=== PATIENT | female | born 1940 | race African-American/Black ===

== ENCOUNTER 2017-04-21 17:31 | Inpatient (IN) | payer OTHER ==
--- NOTE | 2017-04-21 18:43 | PDOC ---
History of Present Illness - General History Source: Patient, Family (son) Exam Limitations: No Limitations - History of Present Illness Initial Comments: 04/21/17 18:48 The patient is a 76 year old female with a significant past medical history of CVA (earlier this year), acute [place] s/p stent x 1 (2 months ago), HTN, HLD, CHF, A -fib (on coumadin), CVA, NSTEMI, CAD, GERD, and chronic lower extremity edema who presents to the ED, accompanied by son, with complaints of recent weight gain and SOB for one week. As per son, the [facility] after her acute MN. Son states, the patient has an increased weight gain and worsening bilateral lower extremity edema. Son also states the patient is short of breath that is worsened on exertion. Denies fever or chills. Denies chest pain or palpitations. Denies abdominal pain , nausea, vomiting, or diarrhea. Denies any other symptoms. PCP: Petra Zapata PMD ([phone]) Cardio: Manan Herr PMD ([phone]) <Cordelia Hui - Last Filed: 04/21/17 18:48> <Rhiannon Moore - Last Filed: 04/21/17 21:08> - General Chief Complaint: Edema Stated Complaint: SOB/FOOT SWOLLEN Time Seen by Provider: 04/21/17 17:59 Past History <Cordelia Hui - Last Filed: 04/21/17 18:48> - Past Medical History CVA: Yes (right sided weakness uses walker) HTN: Yes - Suicide/Smoking/Psychosocial Hx Smoking History: Never smoked Have you smoked in the past 12 months: No Information on smoking cessation initiated: No Hx Alcohol Use: No Drug/Substance Use Hx: No Substance Use Type: None <Rhiannon Moore - Last Filed: 04/21/17 21:08> - Past Medical History Allergies/Adverse Reactions: Allergies Allergy/AdvReac Type Severity Reaction Status Date / Time No Known Allergies Allergy Verified 04/21/17 17:43 Home Medications: Ambulatory Orders Atorvastatin Ca [Lipitor] 80 mg PO HS 04/21/17 Clopidogrel Bisulfate [Clopidogrel] 75 mg PO 04/21/17 Famotidine [Pepcid -] 40 mg PO DAILY 04/21/17 Furosemide [Lasix -] 40 mg PO BID 04/21/17 Lisinopril [Prinivil] 20 mg PO DAILY 04/21/17 Metoprolol Succinate [Toprol Xl -] 50 mg PO DAILY 04/21/17 Potassium Chloride 10 meq PO 04/21/17 Warfarin Sodium [Coumadin] 2.5 mg PO 04/21/17 Review of Systems - Review of Systems Able to Perform ROS?: Yes Comments:: 04/21/17 18:48 CONSTITUTIONAL: No reported: Fever, Chills, Diaphoresis, Generalized Weakness, Malaise, Loss of Appetite HEENT: No reported: Rhinorrhea, Nasal Congestion, Throat Pain, Throat Swelling, Difficulty Swallowing, Mouth Swelling, Ear Pain, Eye Pain, Visual Changes CARDIOVASCULAR: No reported: Chest Pain, Syncope, Palpitations, Irregular Heart Rate, Lightheadedness, Peripheral Edema RESPIRATORY: + SOB with exertion No reported: Cough, Orthopnea, Wheezing, Stridor, Hemoptysis GASTROINTESTINAL: No reported: Abdominal pain, Abdominal Distension, Nausea, Vomiting, Diarrhea, Constipation, Melena, Hematochezia GENITOURINARY: No reported: Dysuria, Frequency, Urgency, Hesitancy, Flank Pain, Genital Pain MUSCULOSKELETAL:+ leg edema No reported: Myalgia, Arthralgia, Joint Swelling, Back pain, Neck Pain SKIN: No reported: Rash, Itching, Pallor HEMEATOLOGIC/IMMUNOLOGIC: No reported: Easy Bleeding, Easy Bruising, Lymphadenopathy, Frequent infections ENDOCRINE:+ weight gain No reported: Unexplained Weight Loss, Heat Intolerance, Cold Intolerance NEUROLOGIC: No reported: Headache, Focal Weakness, Paresthesias, Vertigo, Lightheadedness, Unsteady Gait, Seizure, Mental Status Changes, Incontinence PSYCHIATRIC: No reported: Anxiety, Depression All Other Systems: Reviewed and Negative <Cordelia Hui - Last Filed: 04/21/17 18:48> *Physical Exam - Vital Signs Last Vital Signs Temp Pulse Resp BP Pulse Ox 96 F L 79 18 139/68 96 04/21/17 17:39 04/21/17 17:39 04/21/17 17:39 04/21/17 17:39 04/21/17 17:39 - Physical Exam Comments: 04/21/17 18:48 GENERAL: Well developed, well nourished. Awake and alert. No acute distress. HEENT: Normocephalic, atraumatic. PERRLA, EOMI. No conjunctival pallor. Sclera are non- icteric. Moist mucous membranes. Oropharynx is clear. NECK: Supple. Full ROM. No JVD. Carotid pulses 2+ and symmetric, without bruits. No thyromegaly. No lymphadenopathy. CARDIOVASCULAR: Regular rate and rhythm. No murmurs, rubs, or gallops. Distal pulses are 2+ and symmetric. PULMONARY: No evidence of respiratory distress. Lungs clear to auscultation bilaterally. No wheezing, rales or rhonchi. ABDOMINAL: Soft. Non-tender. Non-distended. No rebound or guarding. No organomegaly. Normoactive bowel sounds. MUSCULOSKELETAL Normal range of motion at all joints. No bony deformities or tenderness. No CVA tenderness. EXTREMITIES: + Bilateral pedal edema. No cyanosis. No clubbing. No calf tenderness. SKIN: Warm and dry. Normal capillary refill. No rashes. No jaundice. NEUROLOGICAL: Alert, awake, appropriate. Cranial nerves 2-12 intact. No deficits to light touch and temperature in face, upper extremities and lower extremities. No motor deficits in the in face, upper extremities and lower extremities. Normoreflexic in the upper and lower extremities. Normal speech. Toes are down- going bilaterally. Gait is normal without ataxia. PSYCHIATRIC: Cooperative. Good eye contact. Appropriate mood and affect. <Cordelia Hui - Last Filed: 04/21/17 18:48> - Vital Signs Last Vital Signs Temp Pulse Resp BP Pulse Ox 96 F L 79 18 139/68 96 04/21/17 17:39 04/21/17 17:39 04/21/17 17:39 04/21/17 17:39 04/21/17 17:39 <Rhiannon Moore - Last Filed: 04/21/17 21:08> Heart Score/ECG Review - History History: Slightly suspicious - Electrocardiogram EKG: Non specific repolarization disturbance - Age Age: >/= 65 - Risk Factors Risk Factors Heart Score: Yes Hx Hypercholesterolemia, Yes Hx Hypertension Based on the list above the patient has:: 1-2 risk factors - Troponin Troponin: </= normal limit - Score Heart Score - Total: 4 - ECG Intrepretation Rhythm: Regular Rhythm <Rhiannon Moore - Last Filed: 04/21/17 21:08> ED Treatment Course - LABORATORY CBC & Chemistry Diagram: 04/21/17 19:00 04/21/17 19:00 <Rhiannon Moore - Last Filed: 04/21/17 21:08> *DC/Admit/Observation/Transfer - Attestations Scribe Attestion: 04/21/17 18:49 Documentation prepared by Cordelia Hui, acting as medical receptionist biller for Rhiannon Moore MD <Cordelia Hui - Last Filed: 04/21/17 18:48> - Discharge Dispostion Admit: Yes <Rhiannon Moore - Last Filed: 04/21/17 21:08> Diagnosis at time of Disposition: Exertional dyspnea, Chronic a-fib, Elevated INR CAD (coronary artery disease) Qualifiers: Coronary Disease-Associated Artery/Lesion type: [place] artery [place] vs. transplanted heart: [place] heart Associated angina: without angina Qualified Code(s): I25.10 - Atherosclerotic heart disease of [place] coronary artery without angina pectoris - Referrals Referrals: Petra Esparza [Primary Care Provider] -
[2017-04-21 19:09] LABS: BASOPHIL 0.9 % (0-2.0); EOSINOPHIL 0.4 % (0-4.5); MCHC 31.7 g/dl (32.0-36.0); MEAN CELL VOLUME 66.1 fl (80-96); MEAN PLT VOLUME 10.2 fl (7.5-11.1); NEUTROPHILS 55.4 % (42.8-82.8); PLATELET COUNT 241 K/MM3 (134-434); WHITE BLOOD COUNT 4.4 K/mm3 (4.0-10.0)
[2017-04-21 19:39] LABS: TROPONIN I 0.03 ng/ml (0.00-0.05)
[2017-04-21 19:52] LABS: INR 3.64 (0.82-1.09); PROTHROMBIN TIME (PATIENT) 41.1 SEC (9.98-11.88)
[2017-04-21 19:54] LABS: ALBUMIN 3.5 g/dl (3.4-5.0); ANION GAP 13 (8-16); BILIRUBIN,TOTAL 1.6 mg/dL (0.2-1.0); CALCIUM 9.3 mg/dL (8.5-10.1); CO2 23 mmol/L (21-32); CREATININE 1.3 mg/dL (0.55-1.02); GLUCOSE,RANDOM 100 mg/dL (74-106); SGPT/ALT 48 U/L (12-78); TOT PROT 7.2 g/dl (6.4-8.2)
[2017-04-21 19:55] LABS: ALK PHOS 127 U/L (45-117)
[2017-04-21 19:57] LABS: SGOT/AST 54 U/L (15-37)
[2017-04-21 20:11] LABS: ANISOCYTOSIS 2+; HYPOCHROMIA 2+; MACROCYTOSIS 1+; MICROCYTOSIS 1+; PLATELET ESTIMATE ADEQUATE (NORMAL)
[2017-04-21] MEDS ORDERED: FUROSEMIDE 40 MG/4 ML INJECTABLE VIAL IVPUSH ONE (20:24)
--- NOTE | 2017-04-21 21:01 | HP ---
CHIEF COMPLAINT: SOB, Swelling to Legs PCP: Dr. Petra Esparza [phone] Geek Squad Agent: Dr. Rahul Herr [phone] HISTORY OF PRESENT ILLNESS: This is a 76 y/o woman with a significant past medical history o Hypertension, Hyperlipidemia, CHF, CVA (R sided deficit, 2017), [place] s/p Stent x1 (2 months ago) , Afib (on Coumadin), GERD, Chronic Lower Extremity Edema. Who presents to the ED with her family for dyspnea on exertion, increased B/L lower extremity swelling x 3-4 days. Patient's son reports that the patient has had increased weight gain as well. Patient was recently discharged from the assisted. Patient denies fever, chills, CP, palpitations ER course was notable for: (1) BNP > 22095 (2) Chest Xray- image Cardiomegaly, ?vascular congestion (3) EKG- NSR 74bpm, anterior infarct, age undetermined (4) INR 3.64 (5) K 5.8 Recent Travel: None PAST MEDICAL HISTORY: HTN HLD CA CHF CVA A-Fib GERD Chronic Leg Edema PAST SURGICAL HISTORY: Cardiac Stent Social History: Smoking: Never Alcohol: None Drugs: None Lives with family, ambulates with walker Family History: Unable to Obtain Allergies No Known Allergies Allergy (Verified 04/21/17 17:43) HOME MEDICATIONS: Home Medications Medication Instructions Recorded Atorvastatin Ca [Lipitor] 80 mg PO HS 04/21/17 Clopidogrel Bisulfate [Clopidogrel] 75 mg PO 04/21/17 Famotidine [Pepcid -] 40 mg PO DAILY 04/21/17 Furosemide [Lasix -] 40 mg PO BID 04/21/17 Lisinopril [Prinivil] 20 mg PO DAILY 04/21/17 Metoprolol Succinate [Toprol Xl -] 50 mg PO DAILY 04/21/17 Potassium Chloride 10 meq PO 04/21/17 Warfarin Sodium [Coumadin] 2.5 mg PO 04/21/17 REVIEW OF SYSTEMS CONSTITUTIONAL: Absent: fever, chills, diaphoresis, generalized weakness, malaise, loss of appetite, weight change HEENT: Absent: rhinorrhea, nasal congestion, throat pain, throat swelling, difficulty swallowing, mouth swelling, ear pain, eye pain, visual changes CARDIOVASCULAR: Absent: chest pain, syncope, palpitations, irregular heart rate, lightheadedness , peripheral edema RESPIRATORY: shortness of breath, dyspnea with exertion Absent: cough, orthopnea, wheezing, stridor, hemoptysis GASTROINTESTINAL: Absent: abdominal pain, abdominal distension, nausea, vomiting, diarrhea, constipation, melena, hematochezia GENITOURINARY: Absent: dysuria, frequency, urgency, hesitancy, hematuria, flank pain, genital pain MUSCULOSKELETAL: Absent: myalgia, arthralgia, joint swelling, back pain, neck pain SKIN: Absent: rash, itching, pallor HEMATOLOGIC/IMMUNOLOGIC: Absent: easy bleeding, easy bruising, lymphadenopathy, frequent infections ENDOCRINE: unexplained weight gain Absent: unexplained weight loss, heat intolerance, cold intolerance NEUROLOGIC: Absent: headache, focal weakness or paresthesias, dizziness, unsteady gait, seizure, mental status changes, bladder or bowel incontinence PSYCHIATRIC: Absent: anxiety, depression, suicidal or homicidal ideation, hallucinations. PHYSICAL EXAMINATION Vital Signs - 24 hr 04/21/17 17:39 Temperature 96 F L Pulse Rate 79 Respiratory 18 Rate Blood Pressure 139/68 O2 Sat by Pulse 96 Oximetry (%) GENERAL: Awake, alert, and fully oriented, in no acute distress. HEAD: Normal with no signs of trauma. EYES: Pupils equal, round and reactive to light, extraocular movements intact, sclera anicteric, conjunctiva clear. No lid lag. EARS, NOSE, THROAT: Ears normal, nares patent, oropharynx clear without exudates. Moist mucous membranes. NECK: Normal range of motion, supple without lymphadenopathy, JVD, or masses. LUNGS: Breath sounds equal, clear to auscultation bilaterally. No wheezes, and no crackles. No accessory muscle use. HEART: Irregular rate and rhythm, normal S1 and S2 without murmur, rub or gallop. ABDOMEN: Soft, nontender, not distended, normoactive bowel sounds, no guarding, no rebound, no masses. No hepatomegaly or splenomegaly. MUSCULOSKELETAL: Normal range of motion at all joints. No bony deformities or tenderness. No CVA tenderness. UPPER EXTREMITIES: 2+ pulses, warm, well-perfused. No cyanosis. No clubbing. No peripheral edema. LOWER EXTREMITIES: 2+ pulses, warm, well-perfused. No calf tenderness. +2 pitting B/L peripheral edema. NEUROLOGICAL: Cranial nerves II-XII intact. Normal speech. Gait not observed PSYCHIATRIC: Cooperative. Good eye contact. Appropriate mood and affect. SKIN: Warm, dry, normal turgor, no rashes or lesions noted, normal capillary refill. Laboratory Results - last 24 hr 04/21/17 04/21/17 04/21/17 19:00 19:00 19:00 WBC RBC Hgb Hct MCV MCH MCHC RDW Plt Count MPV Neutrophils % Lymphocytes % Monocytes % Eosinophils % Basophils % Hypochromia Platelet Estimate Anisocytosis Microcytosis Macrocytosis PT with INR INR Sodium 140 Potassium 5.8 H Chloride 104 Carbon Dioxide 23 Anion Gap 13 BUN 29 H Creatinine 1.3 H Creat Clearance w eGFR 39.61 Random Glucose 100 Calcium 9.3 Total Bilirubin 1.6 H AST 54 H ALT 48 Alkaline Phosphatase 127 H Creatine Kinase 81 Troponin I 0.03 B-Natriuretic Peptide 21199.02 H Total Protein 7.2 Albumin 3.5 04/21/17 04/21/17 19:00 19:00 WBC 4.4 RBC 5.17 Hgb 10.8 Hct 34.2 MCV 66.1 L MCH 21.0 L MCHC 31.7 L RDW 21.0 H Plt Count 241 MPV 10.2 Neutrophils % 55.4 Lymphocytes % 32.1 Monocytes % 11.2 H Eosinophils % 0.4 Basophils % 0.9 Hypochromia 2+ Platelet Estimate Adequate Anisocytosis 2+ Microcytosis 1+ Macrocytosis 1+ PT with INR 41.10 H INR 3.64 H Sodium Potassium Chloride Carbon Dioxide Anion Gap BUN Creatinine Creat Clearance w eGFR Random Glucose Calcium Total Bilirubin AST ALT Alkaline Phosphatase Creatine Kinase Troponin I B-Natriuretic Peptide Total Protein Albumin ASSESSMENT/PLAN: This is a 76 y/o woman with a PMHX of: HTN, HLD, Afib (on Coumadin), CHF, CA, s/ p Stent x1, CVA (right sided deficit), GERD, Chronic Lower Extremity Edema. Placed on Tele Observation for CHF Exacerbation, Supratherapeutic INR, Hyperkalemia for further evaluation of their emergent condition. Plan: 1. CHF Exacerbation - Acute - Tele Monitoring - BNP > 14184 - Chest Xray- image reviewed - Lasix given in ED, will continue - Daily weights - Strict INOs - Serial Enzymes - Monitor BMP 2. Hyperkalemia - Tele monitoring - EKG- reviewed no peaked Ts - Kayexlate given in ED - Monitor BMP - Hold Potassium 3. Supratherapeutic INR - Hold Coumadin for now until INR 2-3 parameters - Daily INRs 4. Afib - EKG reviewed - CHADsVASc2 Score 7 - Coumadin held for secondary to supratherapeutic INR - Daily INRs 5. CAD - s/p Stent x1 - Continue home meds - EKG reviewed 6. HTN - Controlled - Monitor BP - Continue Metoprolol - Hold Lisinopril secondary to TOM 7. GERD - Pepcid NF, changed to Zantac 8. FEN - PO fluids 1L restriction - K corrected 4.4 - Low Na Diet 9. DVT Prophylaxis - OOB - SCDs - Hold AC secondary to Supratherapeutic INR Code Status: Full Code Problem List - Problem (1) CHF exacerbation Code(s): I50.9 - HEART FAILURE, UNSPECIFIED Qualifiers: Congestive heart failure type: unspecified congestive heart failure type Qualified Code(s): I50.9 - Heart failure, unspecified; I50.9 - Heart failure, unspecified; I50.9 - Heart failure, unspecified; I50.9 - Heart failure , unspecified (2) Exertional dyspnea Code(s): R06.09 - OTHER FORMS OF DYSPNEA (3) Hyperkalemia Code(s): E87.5 - HYPERKALEMIA (4) Elevated INR Code(s): R79.1 - ABNORMAL COAGULATION PROFILE (5) A-fib Code(s): I48.91 - UNSPECIFIED ATRIAL FIBRILLATION Qualifiers: Atrial fibrillation type: paroxysmal Qualified Code(s): I48.0 - Paroxysmal atrial fibrillation; I48.0 - Paroxysmal atrial fibrillation; I48.0 - Paroxysmal atrial fibrillation; I48.0 - Paroxysmal atrial fibrillation (6) CAD (coronary artery disease) Code(s): I25.10 - ATHSCL HEART DISEASE OF [place] CORONARY ARTERY W/O ANG PCTRS Qualifiers: Coronary Disease-Associated Artery/Lesion type: [place] artery [place] vs. transplanted heart: [place] heart Associated angina: without angina Qualified Code(s): I25.10 - Atherosclerotic heart disease of [place] coronary artery without angina pectoris; I25.10 - Atherosclerotic heart disease of [place] coronary artery without angina pectoris; I25.10 - Atherosclerotic heart disease of [place] coronary artery without angina pectoris (7) DVT prophylaxis Code(s): [id number] - Visit type - Emergency Visit Emergency Visit: Yes ED Registration Date: 04/21/17 Care time: The patient presented to the Emergency Department on the above date and was hospitalized for further evaluation of their emergent condition. - New Patient This patient is new to me today: Yes Date on this admission: 04/21/17 - Critical Care Critical Care patient: No
[2017-04-21] MEDS ORDERED: FUROSEMIDE 40 MG/4 ML INJECTABLE VIAL ONE (21:04)
[2017-04-21] MEDS ORDERED: SODIUM POLYSTYRENE SULFONATE 15 GM/60 ML BOTTLE PO ONE (22:00)
[2017-04-21] MEDS ORDERED: ATORVASTATIN CA 80 MG TABLET (FP) PO SCH (22:00)
[2017-04-21] MEDS ORDERED: SODIUM POLYSTYRENE SULFONATE 15 GM/60 ML BOTTLE ONE (22:18)
[2017-04-22 05:00] LABS: ANION GAP 12 (8-16); CALCIUM 8.8 mg/dL (8.5-10.1); CO2 24 mmol/L (21-32); CREATININE 1.2 mg/dL (0.55-1.02); GLUCOSE,RANDOM 82 mg/dL (74-106)
[2017-04-22] MEDS ORDERED: FUROSEMIDE 40 MG/4 ML INJECTABLE VIAL ONE (06:04)
[2017-04-22] MEDS: FUROSEMIDE 40 MG/4 ML INJECTABLE VIAL IVPUSH SCH ×2 (06:10→14:39)
[2017-04-22 08:59] LABS: BASOPHIL 1.1 % (0-2.0); EOSINOPHIL 0.9 % (0-4.5); MCH 20.7 pg (25.7-33.7); MCHC 31.9 g/dl (32.0-36.0); MEAN CELL VOLUME 64.8 fl (80-96); MEAN PLT VOLUME 10.1 fl (7.5-11.1); NEUTROPHILS 51.1 % (42.8-82.8); PLATELET COUNT 214 K/MM3 (134-434); RDW 20.1 % (11.6-15.6); WHITE BLOOD COUNT 3.6 K/mm3 (4.0-10.0)
[2017-04-22 09:00] LABS: CHOLESTEROL 83 mg/dL (50-200); MAGNESIUM 1.8 mg/dL (1.8-2.4); PHOSPHOROUS 3.2 mg/dL (2.5-4.9)
[2017-04-22 09:01] LABS: TROPONIN I 0.02 ng/ml (0.00-0.05)
--- NOTE | 2017-04-22 10:14 | CON.CARD ---
Consult Consult Specialty:: Cardiology Referred by:: Hospitalist Medicine Reason for Consultation:: CHF - History of Present Illness Chief Complaint: Dyspnea, LE swelling History of Present Illness: PCP: Dr. Petra Esparza [phone] Nailing Machine Operator: Dr. Rahul Herr [phone] HISTORY OF PRESENT ILLNESS: This is a 76 y/o woman with a significant past medical history of Hypertension, Hyperlipidemia, CHF, CVA (R sided deficit, 2017), CAD h/o [place] s/p Stent x1 (2 months ago), Afib (on Coumadin), GERD, Chronic Lower Extremity Edema presented to the ED with her family for dyspnea on exertion, increased B/L lower extremity swelling and increased weight gain over last several days. Patient was recently discharged from the half-way. Patient denies fever, chills, CP , palpitations, near or true syncope. Recent Travel: None PAST MEDICAL HISTORY: HTN HLD [place] CHF CVA A-Fib GERD Chronic Leg Edema - History Source History Provided By: Patient Limitations to Obtaining History: No Limitations - Alcohol/Substance Use Hx Alcohol Use: No - Smoking History Smoking history: Never smoked Have you smoked in the past 12 months: No Home Medications - Allergies Allergies/Adverse Reactions: Allergies Allergy/AdvReac Type Severity Reaction Status Date / Time No Known Allergies Allergy Verified 04/21/17 17:43 - Home Medications Home Medications: Ambulatory Orders Atorvastatin Ca [Lipitor] 80 mg PO HS 04/21/17 Clopidogrel Bisulfate [Clopidogrel] 75 mg PO 04/21/17 Famotidine [Pepcid -] 40 mg PO DAILY 04/21/17 Furosemide [Lasix -] 40 mg PO BID 04/21/17 Lisinopril [Prinivil] 20 mg PO DAILY 04/21/17 Metoprolol Succinate [Toprol Xl -] 50 mg PO DAILY 04/21/17 Potassium Chloride 10 meq PO 04/21/17 Warfarin Sodium [Coumadin] 2.5 mg PO 04/21/17 Review of Systems - Review of Systems Cardiovascular: reports: Edema, Shortness of Breath Vital Signs: Vital Signs Temperature 97.4 F L 04/22/17 07:25 Pulse Rate 74 04/22/17 07:25 Respiratory Rate 18 04/21/17 21:39 Blood Pressure 120/78 04/22/17 07:25 O2 Sat by Pulse Oximetry (%) 98 04/22/17 07:25 Constitutional: Yes: No Distress, Calm, Thin Neck: Yes: Supple Respiratory: Yes: Regular, Diminished, On Nasal O2 Gastrointestinal: Yes: Normal Bowel Sounds, Soft Cardiovascular: Yes: Pulse Irregular JVD: No Carotid Bruit: No Heart Sounds: Yes: S1, S2 Murmur: Yes: Systolic Murmur, Grade 2 Edema: Yes - Other Data Labs, Other Data: CBC, BMP 04/22/17 06:00 04/22/17 04:23 INR, PTT INR 3.64 (0.82-1.09) H 04/21/17 19:00 Troponin, BNP 04/22/17 04/22/17 04:10 04:23 Troponin I 0.03 0.02 Troponin, BNP 04/22/17 04/22/17 04:10 04:23 Troponin I 0.03 0.02 NSR@74 [facility] Imaging - Results Chest X-ray: Report Reviewed (NAD) Problem List - Problems (1) A-fib Code(s): I48.91 - UNSPECIFIED ATRIAL FIBRILLATION Qualifiers: Atrial fibrillation type: paroxysmal Qualified Code(s): I48.0 - Paroxysmal atrial fibrillation; I48.0 - Paroxysmal atrial fibrillation; I48.0 - Paroxysmal atrial fibrillation; I48.0 - Paroxysmal atrial fibrillation (2) CAD (coronary artery disease) Code(s): I25.10 - ATHSCL HEART DISEASE OF [place] CORONARY ARTERY W/O ANG PCTRS Qualifiers: Coronary Disease-Associated Artery/Lesion type: [place] artery [place] vs. transplanted heart: [place] heart Associated angina: without angina Qualified Code(s): I25.10 - Atherosclerotic heart disease of [place] coronary artery without angina pectoris; I25.10 - Atherosclerotic heart disease of [place] coronary artery without angina pectoris; I25.10 - Atherosclerotic heart disease of [place] coronary artery without angina pectoris (3) CHF exacerbation Code(s): I50.9 - HEART FAILURE, UNSPECIFIED Qualifiers: Congestive heart failure type: unspecified congestive heart failure type Qualified Code(s): I50.9 - Heart failure, unspecified; I50.9 - Heart failure, unspecified; I50.9 - Heart failure, unspecified; I50.9 - Heart failure , unspecified (4) Elevated INR Code(s): R79.1 - ABNORMAL COAGULATION PROFILE (5) Exertional dyspnea Code(s): R06.09 - OTHER FORMS OF DYSPNEA (6) Hyperkalemia Code(s): E87.5 - HYPERKALEMIA (7) Hyperlipidemia Code(s): E78.5 - HYPERLIPIDEMIA, UNSPECIFIED Qualifiers: Hyperlipidemia type: pure hypercholesterolemia Qualified Code(s): E78.00 - Pure hypercholesterolemia, unspecified; E78.00 - Pure hypercholesterolemia, unspecified; E78.00 - Pure hypercholesterolemia, unspecified; E78.0 - Pure hypercholesterolemia (8) Chronic kidney disease (CKD) Code(s): N18.9 - CHRONIC KIDNEY DISEASE, UNSPECIFIED Qualifiers: Chronic kidney disease stage: stage 2 (mild) Qualified Code(s): N18.2 - Chronic kidney disease, stage 2 (mild); N18.2 - Chronic kidney disease, stage 2 (mild) (9) History of coronary artery stent placement Code(s): Z95.5 - PRESENCE OF CORONARY ANGIOPLASTY IMPLANT AND GRAFT (10) History of myocardial infarction Code(s): I25.2 - OLD MYOCARDIAL INFARCTION (11) FPC (current) use of anticoagulants Code(s): Z79.01 - INTERNATIONAL STUDENT COUNSELOR (CURRENT) USE OF ANTICOAGULANTS Assessment/Plan 1. Acute on chronic LV failure 2. Paroxysmal afib on coumadin with supratherapeutic INR 3. CAD h/o [place] s/p PCI (stent), angina pectoris 4. H/o CVA with right-sided residual deficits 5. Chronic kidney disease with hyperkalemia post kayexelate 1. IV diuresis with monitor diuretic response, renal fxn and electrolytes 2. Dose Coumadin per INR 3. Echo to assess ventricular and valve fxn 4. D/c potassium, hold lisinopril pending resolution of hyperkalemia 5. Decrease Lipitor 40 qhs, Plavix 75 qd, Toprol XL 50 qd 6. Please obtain records from ecommerce merchandising manager office for details 7. Thank you for consultative opportunity
[2017-04-22] MEDS: RANITIDINE HCL 150 MG TABLET (FP) PO SCH (11:09)
[2017-04-22] MEDS: CLOPIDOGREL BISULFATE 75 MG TABLET (FP) PO SCH (11:10)
[2017-04-22] MEDS: METOPROLOL SUCCINATE 50 MG TAB.SR.24H (FP) PO SCH (11:10)
[2017-04-22 12:32] VITALS: BMI 24.7
[2017-04-22 12:53] LABS: BASOPHIL 0.9 % (0-2.0); MCH 20.9 pg (25.7-33.7); MCHC 31.8 g/dl (32.0-36.0); MEAN CELL VOLUME 65.8 fl (80-96); MEAN PLT VOLUME 9.6 fl (7.5-11.1); NEUTROPHILS 59.7 % (42.8-82.8); PLATELET COUNT 229 K/MM3 (134-434); RDW 20.7 % (11.6-15.6); WHITE BLOOD COUNT 4.2 K/mm3 (4.0-10.0)
[2017-04-22 13:06] LABS: INR 3.2 (0.82-1.09); PROTHROMBIN TIME (PATIENT) 36.2 SEC (9.98-11.88)
[2017-04-22 14:37] LABS: ANION GAP 10 (8-16); CO2 26 mmol/L (21-32); CREATININE 1.3 mg/dL (0.55-1.02); GLUCOSE,RANDOM 89 mg/dL (74-106)
--- NOTE | 2017-04-22 17:39 | PN ---
Physical Exam: SUBJECTIVE: Patient seen and examined at the bedside. She was attempting to eat her lunch. She reports severe anxiety when she is in a room facing a window secondary to her fear of heights. OBJECTIVE: Vital Signs Period Temp Pulse Resp BP Sys/Marcial Pulse Ox Last 24 Hr 97.4 F-98.1 F 68-76 15-20 89-137/56-81 98-100 GENERAL: Awake, alert, and fully oriented, in no acute distress. HEAD: Normal with no signs of trauma. EYES: Pupils equal, round and reactive to light, extraocular movements intact, sclera anicteric, conjunctiva clear. No lid lag. EARS, NOSE, THROAT: Ears normal, nares patent, oropharynx clear without exudates. Moist mucous membranes. NECK: Normal range of motion, supple without lymphadenopathy, JVD, or masses. LUNGS on 2 liters of nasal cannula, mild scattered wheezing HEART: Irregular rate and rhythm, hx of afib ABDOMEN: Soft, nontender, not distended, normoactive bowel sounds, no guarding, no rebound, no masses. No hepatomegaly or splenomegaly. MUSCULOSKELETAL: Normal range of motion at all joints. No bony deformities or tenderness. No CVA tenderness. UPPER EXTREMITIES: 2+ pulses, warm, well-perfused. No cyanosis. No clubbing. No peripheral edema. LOWER EXTREMITIES: +2 pitting bilateral LE edema peripheral edema. NEUROLOGICAL: Normal speech. Gait not observed PSYCHIATRIC: Cooperative. anxious SKIN: Warm, dry, normal turgor, no rashes or lesions noted, normal capillary refill. Laboratory Results - last 24 hr 04/22/17 04/22/17 04/22/17 04:10 04:23 06:00 WBC 3.6 L RBC 4.57 Hgb 9.4 L D Hct 29.6 L MCV 64.8 L MCH 20.7 L MCHC 31.9 L RDW 20.1 H Plt Count 214 MPV 10.1 Neutrophils % 51.1 Lymphocytes % 37.5 Monocytes % 9.4 Eosinophils % 0.9 D Basophils % 1.1 PT with INR INR Sodium 141 Potassium 4.4 D Chloride 105 Carbon Dioxide 24 Anion Gap 12 BUN 28 H Creatinine 1.2 H Random Glucose 82 Calcium 8.8 Phosphorus 3.2 Magnesium 1.8 Troponin I 0.03 0.02 Triglycerides 83 Cholesterol 83 Total LDL Cholesterol 47 HDL Cholesterol 36 L 04/22/17 04/22/17 04/22/17 12:35 12:35 12:35 WBC 4.2 RBC 4.94 Hgb 10.3 L Hct 32.5 MCV 65.8 L MCH 20.9 L MCHC 31.8 L RDW 20.7 H Plt Count 229 MPV 9.6 Neutrophils % 59.7 Lymphocytes % 27.4 D Monocytes % 11.0 H Eosinophils % 1.0 Basophils % 0.9 PT with INR INR Sodium 141 Potassium 3.8 Chloride 105 Carbon Dioxide 26 Anion Gap 10 BUN 29 H Creatinine 1.3 H Random Glucose 89 Calcium 9.0 Phosphorus Magnesium Troponin I 0.03 Triglycerides Cholesterol Total LDL Cholesterol HDL Cholesterol 04/22/17 12:35 WBC RBC Hgb Hct MCV MCH MCHC RDW Plt Count MPV Neutrophils % Lymphocytes % Monocytes % Eosinophils % Basophils % PT with INR 36.20 H INR 3.20 H Sodium Potassium Chloride Carbon Dioxide Anion Gap BUN Creatinine Random Glucose Calcium Phosphorus Magnesium Troponin I Triglycerides Cholesterol Total LDL Cholesterol HDL Cholesterol Active Medications Generic Name Dose Route Start Last Admin Trade Name Pennie PRN Reason Stop Dose Admin Atorvastatin Calcium 40 mg 04/22/17 22:00 Lipitor - PO HS JULES Clopidogrel Bisulfate 75 mg 04/22/17 10:00 04/22/17 11:10 Plavix - PO 75 mg DAILY JULES Administration Furosemide 40 mg 04/22/17 06:00 04/22/17 14:39 Lasix Injection - IVPUSH 40 mg BID@0600,1400 JULES Administration Metoprolol Succinate 50 mg 04/22/17 10:00 04/22/17 11:10 Toprol Xl - PO 50 mg DAILY JULES Administration Ranitidine HCl 150 mg 04/22/17 10:00 04/22/17 11:09 Zantac - PO 150 mg DAILY JULES Administration ASSESSMENT/PLAN: Patient is a 76 year old female with a significant past medical history of hypertension, hyperlipidemia, CHF, CVA (R sided deficit, 2017), [place] s/p Stent x1 (2 months ago), Afib (on Coumadin), GERD, chronic lower ext edema. She presents to ED for dyspnea on exertion, increased bilateral lower extremity edema x 4 days. It was reported that patient has had increased weight gain as well. Patient denies fever, chills, chest pain or palpitations. [place] admission[place] [address], Chest xray showed cardiomegaly. Her INR remains elevated and her Coumadin is currently on hold. Hyperkalemia on admission at 5.8, now resolved. Cardiology: CHF Exacerbation, acute on chronic A/P: [place] [address]: given Lasix in ED, now on Lasix 40mg IV BID Monitor renal function, which is currently stable Daily weights, strict intake and output Troponins negative x 3 Tele Monitoring Monitor BMP Cardiology following Hyperkalemia, resolved S/P: Kayexelate, K now stable Hold home dose of potassium Afib/Supratherapuetic INR on admission, Holding coumadin, repeat inr in a.m CAD, chronic A/p: Cardiac stent x1, on Plavix Hypertension, controlled A/P: monitor BP On Metoprolol, Lisinopril on hold secondary to TOM Neuro CVA (R sided deficit, 2017) A/P: On Plavix, on Lipitor Lipid panel reviewed F.E.N. Fluids: tolerating PO, restrict PO fluids to 1 liter Electrolytes: monitor Nutrition: low sodium Code Status: Full Code
[2017-04-22] MEDS: ATORVASTATIN CA 40 MG TABLET (FP) PO SCH (21:54)
[2017-04-23] MEDS: FUROSEMIDE 40 MG/4 ML INJECTABLE VIAL IVPUSH SCH ×3 (06:31→14:15)
[2017-04-23 06:57] LABS: INR 2.75 (0.82-1.09); PROTHROMBIN TIME (PATIENT) 31.1 SEC (9.98-11.88)
[2017-04-23 07:02] LABS: EOSINOPHIL 1.6 % (0-4.5); MCH 21.1 pg (25.7-33.7); MEAN CELL VOLUME 65.8 fl (80-96); MEAN PLT VOLUME 11.2 fl (7.5-11.1); NEUTROPHILS 48.4 % (42.8-82.8); PLATELET COUNT 234 K/MM3 (134-434); RDW 20.2 % (11.6-15.6); WHITE BLOOD COUNT 3.9 K/mm3 (4.0-10.0)
[2017-04-23 07:04] LABS: ALBUMIN 2.9 g/dl (3.4-5.0); ANION GAP 10 (8-16); CALCIUM 8.6 mg/dL (8.5-10.1); CO2 28 mmol/L (21-32); GLUCOSE,RANDOM 80 mg/dL (74-106); SGOT/AST 39 U/L (15-37); SGPT/ALT 50 U/L (12-78)
[2017-04-23 07:06] LABS: ALK PHOS 91 U/L (45-117); BILIRUBIN,TOTAL 1.4 mg/dL (0.2-1.0); CREATININE 1.1 mg/dL (0.55-1.02); TOT PROT 5.9 g/dl (6.4-8.2)
--- NOTE | 2017-04-23 07:12 | EKG ---
Test Reason : Blood Pressure : / mmHG Vent. Rate : 074 BPM Atrial Rate : 074 BPM P-R Int : 174 ms QRS Dur : 092 ms QT Int : 398 ms P-R-T Axes : 042 -06 070 degrees QTc Int : 441 ms NORMAL SINUS RHYTHM POSSIBLE LEFT ATRIAL ENLARGEMENT POOR R WAVE PROGRESSION ANTERIOR INFARCT , AGE UNDETERMINED ABNORMAL ECG NO PREVIOUS ECGS AVAILABLE Confirmed by JEFF DHALIWAL MD ([id number]) on 04/23/2017 7:12:34 AM Referred By: Confirmed By:JEFF DHALIWAL MD
[2017-04-23] MEDS: RANITIDINE HCL 150 MG TABLET (FP) PO SCH (09:30)
[2017-04-23] MEDS: CLOPIDOGREL BISULFATE 75 MG TABLET (FP) PO SCH (09:30)
[2017-04-23] MEDS: METOPROLOL SUCCINATE 50 MG TAB.SR.24H (FP) PO SCH (09:30)
[2017-04-23] MEDS: ATORVASTATIN CA 40 MG TABLET (FP) PO SCH ×2 (12:44→22:00)
--- NOTE | 2017-04-23 14:11 | PN ---
Progress Note, Physician Chief Complaint: Events noted History of Present Illness: Patient was seen and examined. Awake. Chart was reviewed Denies chest pain, SOB or palpitations - Current Medication List Current Medications: Active Medications Atorvastatin Calcium (Lipitor -) 40 mg PO HS [facility] Last Admin: 04/23/17 12:44 Dose: 40 mg Clopidogrel Bisulfate (Plavix -) 75 mg PO DAILY [facility] Last Admin: 04/23/17 09:30 Dose: 75 mg Furosemide (Lasix Injection -) 40 mg IVPUSH BID@0600,1400 [facility] Last Admin: 04/23/17 12:53 Dose: 40 mg Metoprolol Succinate (Toprol Xl -) 50 mg PO DAILY [facility] Last Admin: 04/23/17 09:30 Dose: 50 mg Ranitidine HCl (Zantac -) 150 mg PO DAILY [facility] Last Admin: 04/23/17 09:30 Dose: 150 mg Warfarin Sodium (Coumadin -) 2.5 mg PO DAILY@1800 [facility] - Objective Vital Signs: Vital Signs Temperature 98.7 F 04/23/17 08:08 Pulse Rate 77 04/23/17 08:08 Respiratory Rate 20 04/23/17 08:08 Blood Pressure 130/77 04/23/17 08:08 O2 Sat by Pulse Oximetry (%) 97 04/23/17 08:08 Neck: Yes: Supple Cardiovascular: Yes: Pulse Irregular, Murmur (SM), S1, S2 Respiratory: Yes: Diminished Gastrointestinal: Yes: Normal Bowel Sounds, Soft. No: Tenderness Edema: No Additional Findings/Remarks: - Review of Systems Constitutional: denies: Chills, Fever Cardiovascular: denies Chest Pain, denies: Palpitations, (+) Shortness of Breath Respiratory: denies: Cough, Hemoptysis, Orthopnea, PND,(+) SOB, SOB on Exertion Gastrointestinal: denies: Abdominal Pain, Constipation, Diarrhea, Melena, Nausea , Rectal Bleeding, Vomiting Genitourinary: denies: Flank Pain, Hematuria Musculoskeletal: denies: Joint Pain Neurological: denies: Dizziness, Headache, Seizure, Syncope Labs: INR, PTT INR 2.75 (0.82-1.09) H 04/23/17 06:15 Problem List - Problems (1) A-fib Code(s): I48.91 - UNSPECIFIED ATRIAL FIBRILLATION Qualifiers: Atrial fibrillation type: paroxysmal Qualified Code(s): I48.0 - Paroxysmal atrial fibrillation; I48.0 - Paroxysmal atrial fibrillation; I48.0 - Paroxysmal atrial fibrillation; I48.0 - Paroxysmal atrial fibrillation (2) CAD (coronary artery disease) Code(s): I25.10 - ATHSCL HEART DISEASE OF [place] CORONARY ARTERY W/O ANG PCTRS Qualifiers: Coronary Disease-Associated Artery/Lesion type: [place] artery [place] vs. transplanted heart: [place] heart Associated angina: without angina Qualified Code(s): I25.10 - Atherosclerotic heart disease of [place] coronary artery without angina pectoris; I25.10 - Atherosclerotic heart disease of [place] coronary artery without angina pectoris; I25.10 - Atherosclerotic heart disease of [place] coronary artery without angina pectoris (3) Chronic kidney disease (CKD) Code(s): N18.9 - CHRONIC KIDNEY DISEASE, UNSPECIFIED Qualifiers: Chronic kidney disease stage: stage 2 (mild) Qualified Code(s): N18.2 - Chronic kidney disease, stage 2 (mild); N18.2 - Chronic kidney disease, stage 2 (mild) (4) History of coronary artery stent placement Code(s): Z95.5 - PRESENCE OF CORONARY ANGIOPLASTY IMPLANT AND GRAFT (5) Hyperkalemia Code(s): E87.5 - HYPERKALEMIA (6) Hyperlipidemia Code(s): E78.5 - HYPERLIPIDEMIA, UNSPECIFIED Qualifiers: Hyperlipidemia type: pure hypercholesterolemia Qualified Code(s): E78.00 - Pure hypercholesterolemia, unspecified; E78.00 - Pure hypercholesterolemia, unspecified; E78.00 - Pure hypercholesterolemia, unspecified; E78.0 - Pure hypercholesterolemia Assessment/Plan 1. Acute on chronic LV failure 2. Paroxysmal atrial fibrillation 3. CAD h/o [place] s/p PCI (stent), angina pectoris 4. History of CVA with right-sided residual deficits 5. Chronic kidney disease with hyperkalemia PLAN: 1. IV diuresis with monitoring renal function and electrolytes 2. Continue Coumadin per INR 3. Transthoracic echocardiography to assess LV/RV and valvular function 4. Lisinopril being held pending resolution of hyperkalemia 5. Continue Lipitor, Plavix and Toprol XL Further plans are to follow Mikel Tam MD
--- NOTE | 2017-04-23 14:59 | PN ---
Physical Exam: SUBJECTIVE: Patient seen and examined at the bedside. She denies any chest pain or discomfort. States that she can hear herself wheezing. OBJECTIVE: Lungs sounds diminished/mild scattered wheezing, will order allbuterol scheduled Vital Signs Period Temp Pulse Resp BP Sys/Marcial Pulse Ox Last 24 Hr 97.9 F 70 18 128/67 GENERAL: The patient is awake, alert, and fully oriented, in no acute distress. HEAD: Normal with no signs of trauma. EYES: PERRL, extraocular movements intact, sclera anicteric, conjunctiva clear. No ptosis. ENT: Ears normal, nares patent, oropharynx clear without exudates, moist mucous membranes. NECK: Trachea midline, full range of motion, supple. LUNGS: Scattered wheezing, on oxygen 2 liters nasal cannula HEART: Irregular, atrial fib. ABDOMEN: Soft, nontender, nondistended, normoactive bowel sounds, no guarding, no rebound, no hepatosplenomegaly, no masses. EXTREMITIES: +2 bilateral pitting edema NEUROLOGICAL: Normal speech, gait not observed. PSYCH: Normal mood, normal affect. SKIN: Warm, dry, normal turgor, no rashes or lesions noted Active Medications Generic Name Dose Route Start Last Admin Trade Name Freq PRN Reason Stop Dose Admin Atorvastatin Calcium 40 mg 04/22/17 22:00 04/23/17 12:44 Lipitor - PO 40 mg HS JULES Administration Clopidogrel Bisulfate 75 mg 04/22/17 10:00 04/23/17 09:30 Plavix - PO 75 mg DAILY JULES Administration Furosemide 40 mg 04/22/17 06:00 04/23/17 12:53 Lasix Injection - IVPUSH 40 mg BID@0600,1400 JULES Administration Metoprolol Succinate 50 mg 04/22/17 10:00 04/23/17 09:30 Toprol Xl - PO 50 mg DAILY JULES Administration Ranitidine HCl 150 mg 04/22/17 10:00 04/23/17 09:30 Zantac - PO 150 mg DAILY JULES Administration Warfarin Sodium 2.5 mg 04/23/17 18:00 Coumadin - PO DAILY@1800 [facility] ASSESSMENT/PLAN: Patient is a 76 year old female with a significant past medical history of hypertension, hyperlipidemia, CHF, CVA (R sided deficit, 2017), [place] s/p Stent x1 (2 months ago), Afib (on Coumadin), GERD, chronic lower ext edema. She presents to ED for dyspnea on exertion, increased bilateral lower extremity edema x 4 days. It was reported that patient has had increased weight gain as well. Patient denies fever, chills, chest pain or palpitations. [place] [address], Chest xray showed cardiomegaly. Her INR remains elevated and her Coumadin is currently on hold. Hyperkalemia on admission at 5.8, now resolved. Cardiology: CHF Exacerbation, acute on chronic A/P: [place] [address]: given Lasix in ED, now on Lasix 40mg IV BID Monitor renal function Daily weights, strict intake and output Troponins negative x 3 Echo reviewed Tele Monitoring Monitor BMP Cardiology following Hyperkalemia, resolved S/P: Kayexelate, K now stable Hold home dose of potassium Afib/Supratherapuetic INR on admission, INR now therapeutic, to continue Coumadin tonight CAD, chronic A/p: Cardiac stent x1, on Plavix Hypertension, controlled A/P: monitor BP On Metoprolol, Lisinopril on hold secondary to TOM Pulmonary: Shortness of breath/dyspnea on exertion, +wheezing, acute on chronic A/P: Tolerating 2 liters of nasal cannula Has mild scattered expiratory wheezing Duonebs scheduled ordered Pulmonary to follow Neuro CVA (R sided deficit, 2017) A/P: On Plavix, on Lipitor Lipid panel reviewed PT to follow F.E.N. Fluids: tolerating PO, restrict PO fluids to 1 liter Electrolytes: monitor Nutrition: low sodium Prophylaxis: DVT: On Coumadin GI: Protonix Code Status: Full Code Dispositon. Full code. Visit type - Emergency Visit Emergency Visit: Yes ED Registration Date: 04/23/17 Care time: The patient presented to the Emergency Department on the above date and was hospitalized for further evaluation of their emergent condition. - New Patient This patient is new to me today: No - Critical Care Critical Care patient: No - Discharge Referral Referred to [facility] Med P.C.: No
[2017-04-23] MEDS: WARFARIN NA 2.5 MG TABLET (FP) PO SCH (17:14)
[2017-04-23] MEDS: ACETAMINOPHEN 325 MG TABLET (FP) PO PRN (22:24)
--- NOTE | 2017-04-23 22:53 | HOSP ---
Subjective - Review of Symptoms Events since last encounter: Hospitalist Encounter Notified by RN that the patient was complaining of r-ankle pain. Arrived to bedside, patient is alert, awake and oriented. Patient reports pain to R- ankle since SCD was applied. Upon inspection, no erythema, no edema, +pedal pulses, skin warm, healed surgical incisions noted to medial and lateral R- ankle, no homans sign. Order d/c for SCD to R- leg, SHANDA to R- leg Patient is on Coumadin for A-fib currently therapeutic Wells Score 1 Will continue to monitor Later received 2nd call from RN regarding patient having 2 separate runs of V- Tach, 12 and 8 Arrived to bedside, patient denies chest pain or SOB Ordered CMP, Mg, EKG stat, RN to call Comic Book Artist to inform of Non-sustained V - Tach 1240- Spoke with RN, patient had no further runs of V-tach and was given an additional dose of Metoprolol- from order- Dr. Zamora 12:43- received call from RN, Mg 1.5 ordered Mag Sulfate 2gms x 1 now Will continue to monitor, and inform Day Team in am Physical Examination Vital Signs: Vital Signs Temperature 97 F L 04/23/17 21:40 Pulse Rate 75 04/23/17 21:40 Respiratory Rate 20 04/23/17 21:41 Blood Pressure 130/74 04/23/17 21:40 O2 Sat by Pulse Oximetry (%) 100 04/23/17 21:41 Constitutional: Yes: Well Nourished, No Distress, Calm Eyes: Yes: WNL, Conjunctiva Clear, PERRL HENT: Yes: WNL, Atraumatic, Normocephalic Neck: Yes: WNL, Supple, Trachea Midline Cardiovascular: Yes: Pulse Irregular, S1, S2 Respiratory: Yes: WNL, Regular, CTA Bilaterally Gastrointestinal: Yes: WNL, Normal Bowel Sounds, Soft Musculoskeletal: Yes: Other (Right lateral ankle tenderness). No: Joint Swelling Extremities: No: Calf Tenderness, Erythema Peripheral Pulses WNL: Yes Neurological: Yes: WNL, Alert, Oriented, Cran Nerves II-XII Intact ...Motor Strength: WNL Psychiatric: Yes: WNL, Alert, Oriented Labs: Laboratory Results - last 24 hr 04/23/17 04/23/17 04/23/17 06:15 06:15 06:15 WBC 3.9 L RBC 4.43 Hgb 9.3 L Hct 29.1 L MCV 65.8 L MCH 21.1 L MCHC 32.0 RDW 20.2 H Plt Count 234 MPV 11.2 H D Neutrophils % 48.4 Lymphocytes % 40.5 H D Monocytes % 8.5 Eosinophils % 1.6 Basophils % 1.0 PT with INR 31.10 H INR 2.75 H Sodium 143 Potassium 3.9 Chloride 105 Carbon Dioxide 28 Anion Gap 10 BUN 28 H Creatinine 1.1 H Creat Clearance w eGFR 48.04 Random Glucose 80 Calcium 8.6 Magnesium Total Bilirubin 1.4 H AST 39 H D ALT 50 Alkaline Phosphatase 91 D Total Protein 5.9 L Albumin 2.9 L 04/23/17 04/23/17 23:00 23:00 WBC RBC Hgb Hct MCV MCH MCHC RDW Plt Count MPV Neutrophils % Lymphocytes % Monocytes % Eosinophils % Basophils % PT with INR INR Sodium 142 Potassium 3.5 Chloride 105 Carbon Dioxide 28 Anion Gap 9 BUN 29 H Creatinine 1.2 H Creat Clearance w eGFR 43.45 Random Glucose 100 D Calcium 7.8 L Magnesium 1.5 L Total Bilirubin 1.0 D AST 48 H D ALT 62 D Alkaline Phosphatase 93 Total Protein 5.7 L Albumin 2.8 L Current Medications Generic Name Dose Route Start Last Admin Trade Name Freq PRN Reason Stop Dose Admin Acetaminophen 650 mg 04/23/17 22:00 04/23/17 22:24 Tylenol - PO 650 mg Q6H PRN Administration FEVER OR PAIN Albuterol/Ipratropium 1 amp 04/23/17 15:15 04/23/17 23:04 Duoneb - NEB 1 amp QIDR JULES Administration Atorvastatin Calcium 40 mg 04/22/17 22:00 04/23/17 22:00 Lipitor - PO 40 mg HS JULES Administration Clopidogrel Bisulfate 75 mg 04/22/17 10:00 04/23/17 09:30 Plavix - PO 75 mg DAILY JULES Administration Furosemide 40 mg 04/22/17 06:00 04/23/17 14:15 Lasix Injection - IVPUSH Not Given BID@0600,1400 JULES Metoprolol Succinate 50 mg 04/22/17 10:00 04/23/17 09:30 Toprol Xl - PO 50 mg DAILY JULES Administration Ranitidine HCl 150 mg 04/22/17 10:00 04/23/17 09:30 Zantac - PO 150 mg DAILY JULES Administration Warfarin Sodium 2.5 mg 04/23/17 18:00 04/23/17 17:14 Coumadin - PO 2.5 mg DAILY@1800 JULES Administration
[2017-04-23] MEDS: ALBUTEROL SO4 2.5/IPRATROPIUM 0.5 INH SOL 3 ML VIAL.NEB. NEB SCH (23:04)
[2017-04-23] MEDS ORDERED: METOPROLOL SUCCINATE 50 MG TAB.SR.24H (FP) PO ONE (23:45)
[2017-04-23 23:57] LABS: ALBUMIN 2.8 g/dl (3.4-5.0); ALK PHOS 93 U/L (45-117); ANION GAP 9 (8-16); CALCIUM 7.8 mg/dL (8.5-10.1); CO2 28 mmol/L (21-32); CREATININE 1.2 mg/dL (0.55-1.02); GLUCOSE,RANDOM 100 mg/dL (74-106); SGOT/AST 48 U/L (15-37); SGPT/ALT 62 U/L (12-78); TOT PROT 5.7 g/dl (6.4-8.2)
[2017-04-24] MEDS ORDERED: MAGNESIUM SULF 50% (8.12 MEQ/2 ML-1 GM VIAL) IVPB ONE (00:42)
[2017-04-24] MEDS: ALBUTEROL SO4 2.5/IPRATROPIUM 0.5 INH SOL 3 ML VIAL.NEB. NEB SCH (06:35)
[2017-04-24 07:20] LABS: EOSINOPHIL 2.2 % (0-4.5); MCHC 32.4 g/dl (32.0-36.0); MEAN CELL VOLUME 64.9 fl (80-96); MEAN PLT VOLUME 9.6 fl (7.5-11.1); NEUTROPHILS 50.3 % (42.8-82.8); PLATELET COUNT 224 K/MM3 (134-434); RDW 20.6 % (11.6-15.6); WHITE BLOOD COUNT 3.8 K/mm3 (4.0-10.0)
[2017-04-24 07:31] LABS: INR 2.04 (0.82-1.09); PROTHROMBIN TIME (PATIENT) 23.1 SEC (9.98-11.88)
[2017-04-24 07:58] LABS: ALBUMIN 2.9 g/dl (3.4-5.0); ANION GAP 11 (8-16); CALCIUM 8.3 mg/dL (8.5-10.1); CO2 27 mmol/L (21-32); GLUCOSE,RANDOM 78 mg/dL (74-106)
[2017-04-24 08:05] LABS: ALK PHOS 88 U/L (45-117); BILIRUBIN,TOTAL 1.8 mg/dL (0.2-1.0); SGOT/AST 47 U/L (15-37); SGPT/ALT 60 U/L (12-78); TOT PROT 5.6 g/dl (6.4-8.2)
[2017-04-24] MEDS: FUROSEMIDE 40 MG/4 ML INJECTABLE VIAL IVPUSH SCH ×2 (08:45→15:59)
[2017-04-24] MEDS ORDERED: POTASSIUM CHLORIDE TABS 20 MEQ TABLET.ER (FP) PO ONE ×2 (09:00→11:30)
[2017-04-24 09:34] LABS: MAGNESIUM 2.2 mg/dL (1.8-2.4); PHOSPHOROUS 3.3 mg/dL (2.5-4.9)
--- NOTE | 2017-04-24 10:44 | PN ---
Physical Exam: SUBJECTIVE: Patient seen and examined. Denies SOB, chest pain, abdominal bloating, PND. OBJECTIVE: Vital Signs Period Temp Pulse Resp BP Sys/Marcial Pulse Ox Last 24 Hr 97 F-98.4 F 63-75 12-20 114-130/58-80 100-100 GENERAL: The patient is awake, alert, and fully oriented, in no acute distress. HEAD: Normal with no signs of trauma. NECK: Trachea midline, full range of motion, supple. 8cm JVD present. LUNGS: Breath sounds equal, clear to auscultation bilaterally, no wheezes, no crackles, no accessory muscle use. Resonance upon percussion to all lung padilla. HEART: Irregular rate and rhythm, S1, S2 without murmur, rub or gallop. Tele with 3 runs NST overnight. ABDOMEN: Soft, nontender, nondistended, normoactive bowel sounds, no guarding. EXTREMITIES: 2+ pulses, warm, well-perfused, no edema. NEUROLOGICAL: Cranial nerves II through XII grossly intact. Normal speech, gait not observed. PSYCH: Normal mood, normal affect. SKIN: Warm, dry, normal turgor, no rashes or lesions noted Laboratory Results - last 24 hr 04/23/17 04/23/17 04/24/17 23:00 23:00 05:18 WBC 3.8 L RBC 4.33 Hgb 9.1 L Hct 28.1 L MCV 64.9 L MCH 21.0 L MCHC 32.4 RDW 20.6 H Plt Count 224 MPV 9.6 D Neutrophils % 50.3 Lymphocytes % 37.8 Monocytes % 8.7 Eosinophils % 2.2 Basophils % 1.0 PT with INR INR Sodium 142 Potassium 3.5 Chloride 105 Carbon Dioxide 28 Anion Gap 9 BUN 29 H Creatinine 1.2 H Creat Clearance w eGFR 43.45 Random Glucose 100 D Calcium 7.8 L Phosphorus Magnesium 1.5 L Total Bilirubin 1.0 D AST 48 H D ALT 62 D Alkaline Phosphatase 93 Total Protein 5.7 L Albumin 2.8 L 04/24/17 04/24/17 04/24/17 05:18 05:18 05:18 WBC RBC Hgb Hct MCV MCH MCHC RDW Plt Count MPV Neutrophils % Lymphocytes % Monocytes % Eosinophils % Basophils % PT with INR 23.10 H INR 2.04 H Sodium 141 Potassium 3.1 L Chloride 103 Carbon Dioxide 27 Anion Gap 11 BUN 29 H Creatinine 1.0 Creat Clearance w eGFR 53.62 Random Glucose 78 D Calcium 8.3 L Phosphorus 3.3 Cancelled Magnesium 2.2 D Cancelled Total Bilirubin 1.8 H D AST 47 H ALT 60 Alkaline Phosphatase 88 Total Protein 5.6 L Albumin 2.9 L Active Medications Generic Name Dose Route Start Last Admin Trade Name Freq PRN Reason Stop Dose Admin Acetaminophen 650 mg 04/23/17 22:00 04/23/17 22:24 Tylenol - PO 650 mg Q6H PRN Administration FEVER OR PAIN Albuterol/Ipratropium 1 amp 04/23/17 15:15 04/24/17 06:35 Duoneb - NEB 1 amp QIDR JULES Administration Atorvastatin Calcium 40 mg 04/22/17 22:00 04/23/17 22:00 Lipitor - PO 40 mg HS JULES Administration Clopidogrel Bisulfate 75 mg 04/22/17 10:00 04/23/17 09:30 Plavix - PO 75 mg DAILY JULES Administration Furosemide 40 mg 04/22/17 06:00 04/24/17 08:45 Lasix Injection - IVPUSH 40 mg BID@0600,1400 JULES Administration Metoprolol Succinate 50 mg 04/22/17 10:00 04/23/17 09:30 Toprol Xl - PO 50 mg DAILY JULES Administration Ranitidine HCl 150 mg 04/22/17 10:00 04/23/17 09:30 Zantac - PO 150 mg DAILY JULES Administration Warfarin Sodium 2.5 mg 04/23/17 18:00 04/23/17 17:14 Coumadin - PO 2.5 mg DAILY@1800 JULES Administration ECHO 04/23: LV dilated with severely reduced function. Moderate->severe MR. Mild Pulm HTN. ASSESSMENT/PLAN: A: 76yo woman with CHF exacerbation. Overnight had 3 runs of NSVT- 8 beats @ 1935, 10 beats @ 2218, 12 beats @ 0530. P: CHF exac - telemetry - 3 runs of NSVT overnight. Mg++ repleted with appropriate response. - Daily weights - strict I&O's - Hold ACEi given TOM- hyperK resolved - Lasix - wheezes improved on Duonebs RTC - appreciate cards - ?AICD given reduced EF and VT Hyperkalemia - resolved 3.1 this AM - continue to hold ACEi given TOM - will replete prn given Lasix use TOM - improving - continue to hold ACEi - trend Cr/BUN Afib - tele - continue Coumadin - daily INR HTN - well maintained - continue Toprol CAD - ASA - Plavix HLD - Lipitor F/E/N - Low NA diet - Daily weights - Strict I&O's - replete prn PPX - Therapeutic on Coumadin - Zantac Dispo- Requires inpatient evaluation of acute medical conditions. Visit type - Emergency Visit Emergency Visit: Yes ED Registration Date: 04/23/17 Care time: The patient presented to the Emergency Department on the above date and was hospitalized for further evaluation of their emergent condition. - New Patient This patient is new to me today: Yes Date on this admission: 04/24/17 - Critical Care Critical Care patient: No
[2017-04-24] MEDS: RANITIDINE HCL 150 MG TABLET (FP) PO SCH (11:12)
[2017-04-24] MEDS: CLOPIDOGREL BISULFATE 75 MG TABLET (FP) PO SCH (11:12)
[2017-04-24] MEDS: METOPROLOL SUCCINATE 50 MG TAB.SR.24H (FP) PO SCH (11:14)
--- NOTE | 2017-04-24 11:49 | PN ---
Progress Note, Physician History of Present Illness: PCP: Dr. Petra Esparza [phone] Dope Edger: Dr. Rahul Cao [phone] Dyspnea on exertiona, LE edema improving with diuresis. Denies chest pain. - Current Medication List Current Medications: Active Medications Acetaminophen (Tylenol -) 650 mg PO Q6H PRN PRN Reason: FEVER OR PAIN Last Admin: 04/23/17 22:24 Dose: 650 mg Albuterol/Ipratropium (Duoneb -) 1 amp NEB QIDR [facility] Last Admin: 04/24/17 06:35 Dose: 1 amp Atorvastatin Calcium (Lipitor -) 40 mg PO HS [facility] Last Admin: 04/23/17 22:00 Dose: 40 mg Clopidogrel Bisulfate (Plavix -) 75 mg PO DAILY [facility] Last Admin: 04/24/17 11:12 Dose: 75 mg Furosemide (Lasix Injection -) 40 mg IVPUSH BID@0600,1400 [facility] Last Admin: 04/24/17 08:45 Dose: 40 mg Metoprolol Succinate (Toprol Xl -) 50 mg PO DAILY [facility] Last Admin: 04/24/17 11:14 Dose: 50 mg Ranitidine HCl (Zantac -) 150 mg PO DAILY [facility] Last Admin: 04/24/17 11:12 Dose: 150 mg Warfarin Sodium (Coumadin -) 2.5 mg PO DAILY@1800 [facility] Last Admin: 04/23/17 17:14 Dose: 2.5 mg - Objective Vital Signs: Vital Signs Temperature 97.8 F 04/24/17 09:00 Pulse Rate 68 04/24/17 09:00 Respiratory Rate 18 04/24/17 09:00 Blood Pressure 114/58 04/24/17 09:00 O2 Sat by Pulse Oximetry (%) 100 04/23/17 21:41 Constitutional: Yes: No Distress, Calm Neck: Yes: Supple Cardiovascular: Yes: Regular Rate and Rhythm, Murmur (2/6 SM) Respiratory: Yes: Regular, Diminished Gastrointestinal: Yes: Normal Bowel Sounds, Soft Edema: No Labs: CBC, BMP 04/24/17 05:18 04/24/17 05:18 INR, PTT INR 2.04 (0.82-1.09) H 04/24/17 05:18 - ....Imaging EKG: Report Reviewed (Tele: SR, NSVT EKG: SR @ 69 PAC, PRWP) Problem List - Problems (1) A-fib Code(s): I48.91 - UNSPECIFIED ATRIAL FIBRILLATION Qualifiers: Atrial fibrillation type: paroxysmal Qualified Code(s): I48.0 - Paroxysmal atrial fibrillation; I48.0 - Paroxysmal atrial fibrillation; I48.0 - Paroxysmal atrial fibrillation; I48.0 - Paroxysmal atrial fibrillation (2) CAD (coronary artery disease) Code(s): I25.10 - ATHSCL HEART DISEASE OF [place] CORONARY ARTERY W/O ANG PCTRS Qualifiers: Coronary Disease-Associated Artery/Lesion type: [place] artery [place] vs. transplanted heart: [place] heart Associated angina: without angina Qualified Code(s): I25.10 - Atherosclerotic heart disease of [place] coronary artery without angina pectoris; I25.10 - Atherosclerotic heart disease of [place] coronary artery without angina pectoris; I25.10 - Atherosclerotic heart disease of [place] coronary artery without angina pectoris (3) CHF exacerbation Code(s): I50.9 - HEART FAILURE, UNSPECIFIED Qualifiers: Congestive heart failure type: systolic Qualified Code(s): I50.23 - Acute on chronic systolic (congestive) heart failure; I50.23 - Acute on chronic systolic (congestive) heart failure; I50.23 - Acute on chronic systolic ( congestive) heart failure; I50.23 - Acute on chronic systolic (congestive) heart failure (4) Elevated INR Code(s): R79.1 - ABNORMAL COAGULATION PROFILE (5) Exertional dyspnea Code(s): R06.09 - OTHER FORMS OF DYSPNEA (6) Hyperkalemia Code(s): E87.5 - HYPERKALEMIA (7) Hyperlipidemia Code(s): E78.5 - HYPERLIPIDEMIA, UNSPECIFIED Qualifiers: Hyperlipidemia type: pure hypercholesterolemia Qualified Code(s): E78.00 - Pure hypercholesterolemia, unspecified; E78.00 - Pure hypercholesterolemia, unspecified; E78.00 - Pure hypercholesterolemia, unspecified; E78.0 - Pure hypercholesterolemia (8) Chronic kidney disease (CKD) Code(s): N18.9 - CHRONIC KIDNEY DISEASE, UNSPECIFIED Qualifiers: Chronic kidney disease stage: stage 2 (mild) Qualified Code(s): N18.2 - Chronic kidney disease, stage 2 (mild); N18.2 - Chronic kidney disease, stage 2 (mild) (9) History of coronary artery stent placement Code(s): Z95.5 - PRESENCE OF CORONARY ANGIOPLASTY IMPLANT AND GRAFT (10) History of myocardial infarction Code(s): I25.2 - OLD MYOCARDIAL INFARCTION (11) halfway (current) use of anticoagulants Code(s): Z79.01 - WASH OPERATOR (CURRENT) USE OF ANTICOAGULANTS (12) Non-sustained ventricular tachycardia Code(s): I47.2 - VENTRICULAR TACHYCARDIA (13) Moderate to severe mitral regurgitation Code(s): I34.0 - NONRHEUMATIC MITRAL (VALVE) INSUFFICIENCY Assessment/Plan 04/24/2017 Transthoracic echocardiography: Mildly dilated with severely decreased LV fxn, moderate decreased RV fxn, mild LAE, mod-severe MR, mod TR, mild AR, mod AR, small pericardial effusion 1. Acute on chronic systolic LV failure with mod-severe MR resolving 2. Paroxysmal atrial fibrillation -> SR with therapeutic INR 3. CAD h/o [place] s/p PCI (stent), angina pectoris 4. History of CVA with right-sided residual deficits 5. Acute kidney injury with hyperkalemia resolved 6. Non-sustained VT PLAN: 1. Decrease Lasix 40 qd with monitoring diuretic response, renal function and electrolytes, replete for K>4.5, Mg>2.5 2. Continue Coumadin per INR 3. Resume Lisinopril 10 qd with resolution of hyperkalemia and TOM, add Aldactone 25 qd 5. Continue Lipitor 40 qhs, Plavix 75 qd and increase Toprol XL 100 qd 6. Obtain records from 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 Consider screening for sleep disordered breathing
--- NOTE | 2017-04-24 11:54 | EKG ---
Test Reason : Blood Pressure : / mmHG Vent. Rate : 070 BPM Atrial Rate : 070 BPM P-R Int : 180 ms QRS Dur : 096 ms QT Int : 420 ms P-R-T Axes : 044 020 149 degrees QTc Int : 453 ms POOR DATA QUALITY, INTERPRETATION MAY BE ADVERSELY AFFECTED NORMAL SINUS RHYTHM NONSPECIFIC ST AND T WAVE ABNORMALITY ABNORMAL ECG WHEN COMPARED WITH ECG OF 21-APR-2017 20:04, NONSPECIFIC T WAVE ABNORMALITY NOW EVIDENT IN INFERIOR LEADS Confirmed by CASSY KRAUSE, AMALIA ([id number]) on 04/24/2017 11:53:47 AM Referred By: Confirmed By:AMAILA MADERA MD
--- NOTE | 2017-04-24 12:13 | PN ---
Progress Note (short form) - Note Progress Note: PULMONARY CONSULTATION DICTATED 04/24/17 IMP ACUTE ON CHRONIC SYSTOLIC CHF SEVERE LV DYSFUNCTION ASHD S/P NE,S/P STENT X1 AFIB H/O CVA HLD GERD PLAN IV LASIX O2 DAILY WTS F/U CHEST X-RAY FURTHER W/U PER CARDIOLOGY SLEEP SCREEN DR MARCUS
--- NOTE | 2017-04-24 13:57 | CONS ---
DATE OF CONSULTATION: 04/24/2017 REFERRING PHYSICIAN: Dr. Hermosillo HISTORY OF PRESENT ILLNESS: The patient is a 76-year-old female with a past medical history significant for hypertension, congestive heart failure, history of right-sided CVA in 2017, ASHD, status post stent x1 approximately 2 months ago, atrial fibrillation, GERD, chronic lower extremity edema, admitted to [facility] with complaint of dyspnea on exertion, increasing lower extremity edema over the past few days. Patient denying any complaints of chest pain, nausea, vomiting, or diaphoresis. Patient presented to the emergency room as above. In the ER, she was treated with Lasix and transferred to medical telemetry unit for further management. Patient is a nonsmoker. There is no apparent history of occupational exposure to chemicals or fumes. She denies any history of COPD or asthma in the past. States that she is able to ambulate a short distance before she develops shortness of breath. She also states she sleeps on 2 pillows. Denies any PND. PAST MEDICAL HISTORY: Again includes hypertension, hyperlipidemia, ASHD, status post stent, status post ME, congestive heart failure, CVA, atrial fibrillation, chronic lower extremity edema, and GERD. REVIEW OF SYSTEMS: Positive orthopnea. Positive dyspnea. No chest pain. No palpitations. No cough. No hemoptysis. No abdominal pain. Positive lower extremity edema. CURRENT MEDICATIONS: Include Tylenol, Coumadin, Duo-Neb, Toprol, Zantac, Lipitor, Lasix, and Plavix. PHYSICAL EXAMINATION: General: The patient is a well-developed, well-nourished female, awake, alert, in no acute distress. Vital Signs: She is currently afebrile, blood pressure is 114/58, respiratory rate is 18, O2 saturation is 100% on 2 L. HEENT: Normocephalic, atraumatic. Neck: Supple. Heart: Irregularly irregular with normal S1, S2. Chest: Few bibasilar crackles. Abdomen: Soft. Bowel sounds are positive. Extremities: positive lower extremity edema. LABORATORIES: WBC is 3.8, hemoglobin 9.1, hematocrit 28.1, with a platelet count of 224,000. INR is 2.04. BUN is 29, creatinine 1.0. Chest x-ray reveals cardiomegaly but no acute infiltrates and/or effusions. Echocardiogram reveals left ventricle mildly dilated, severely reduced left ventricular systolic function, severe global hypokinesia of left ventricle, reduced RV systolic function. IMPRESSION: 1. Dyspnea secondary to decompensated congestive heart failure. 2. Atherosclerotic heart disease, status post myocardial infarction, status post stent x1 two months ago. 3. History of cerebrovascular accident. 4. Chronic lower extremity edema. 5. Gastroesophageal reflux disease. 6. Hyperlipidemia. 7. Severe left ventricular dysfunction. 8. Atrial fibrillation. 9. Hypertension. PLAN: Continue IV Lasix, supplemental O2. Monitor electrolytes. Obtain followup chest x-rays. Further recommendations as per Cardiology. Thank you. EFRAÍN MARCUS M.D. [id number] MTDD
[2017-04-24] MEDS: LISINOPRIL 10 MG TABLET (FP) PO SCH (14:01)
[2017-04-24] MEDS: ATORVASTATIN CA 40 MG TABLET (FP) PO SCH (17:48)
[2017-04-24] MEDS: SPIRONOLACTONE 25 MG TABLET (FP) PO SCH (17:48)
[2017-04-24] MEDS: WARFARIN NA 2.5 MG TABLET (FP) PO SCH (20:14)
[2017-04-25] MEDS: ALBUTEROL SO4 2.5/IPRATROPIUM 0.5 INH SOL 3 ML VIAL.NEB. NEB SCH ×5 (00:05→23:35)
[2017-04-25] MEDS: FUROSEMIDE 40 MG/4 ML INJECTABLE VIAL IVPUSH SCH ×2 (06:30→12:12)
[2017-04-25 07:56] LABS: BASOPHIL 0.7 % (0-2.0); EOSINOPHIL 2.3 % (0-4.5); MCHC 32.9 g/dl (32.0-36.0); MEAN PLT VOLUME 9.5 fl (7.5-11.1); NEUTROPHILS 52.7 % (42.8-82.8); PLATELET COUNT 265 K/MM3 (134-434); RDW 20.5 % (11.6-15.6); WHITE BLOOD COUNT 4.8 K/mm3 (4.0-10.0)
[2017-04-25 08:14] LABS: INR 1.7 (0.82-1.09); PROTHROMBIN TIME (PATIENT) 19.2 SEC (9.98-11.88)
[2017-04-25 08:20] LABS: ANION GAP 10 (8-16); CALCIUM 8.1 mg/dL (8.5-10.1); CO2 29 mmol/L (21-32); CREATININE 0.8 mg/dL (0.55-1.02); GLUCOSE,RANDOM 77 mg/dL (74-106); MAGNESIUM 1.9 mg/dL (1.8-2.4); PHOSPHOROUS 3.1 mg/dL (2.5-4.9)
[2017-04-25] MEDS ORDERED: POTASSIUM CHLORIDE TABS 20 MEQ TABLET.ER (FP) PO ONE (09:00)
[2017-04-25] MEDS: LISINOPRIL 10 MG TABLET (FP) PO SCH (09:08)
[2017-04-25] MEDS: CLOPIDOGREL BISULFATE 75 MG TABLET (FP) PO SCH (09:09)
[2017-04-25] MEDS: RANITIDINE HCL 150 MG TABLET (FP) PO SCH (09:09)
[2017-04-25] MEDS: METOPROLOL SUCCINATE 100 MG TAB.SR.24H (FP) PO SCH (09:09)
[2017-04-25] MEDS: SPIRONOLACTONE 25 MG TABLET (FP) PO SCH (09:10)
--- NOTE | 2017-04-25 09:34 | PN ---
Progress Note, Physician Chief Complaint: Events noted Information reviewed regarding prior PCI and presence of ILR History of Present Illness: Patient was seen and examined. Awake. Chart was reviewed Denies chest pain, SOB or palpitations - Current Medication List Current Medications: Active Medications Acetaminophen (Tylenol -) 650 mg PO Q6H PRN PRN Reason: FEVER OR PAIN Last Admin: 04/23/17 22:24 Dose: 650 mg Albuterol/Ipratropium (Duoneb -) 1 amp NEB QIDR [facility] Last Admin: 04/25/17 07:12 Dose: 1 amp Atorvastatin Calcium (Lipitor -) 40 mg PO DAILY@1800 [facility] Last Admin: 04/24/17 17:48 Dose: 40 mg Clopidogrel Bisulfate (Plavix -) 75 mg PO DAILY [facility] Last Admin: 04/25/17 09:09 Dose: 75 mg Furosemide (Lasix Injection -) 40 mg IVPUSH DAILY [facility] Lisinopril (Prinivil) 10 mg PO DAILY [facility] Last Admin: 04/25/17 09:08 Dose: 10 mg Metoprolol Succinate (Toprol Xl -) 100 mg PO DAILY [facility] Last Admin: 04/25/17 09:09 Dose: 100 mg Ranitidine HCl (Zantac -) 150 mg PO DAILY [facility] Last Admin: 04/25/17 09:09 Dose: 150 mg Spironolactone (Aldactone -) 25 mg PO DAILY [facility] Last Admin: 04/25/17 09:10 Dose: 25 mg Warfarin Sodium (Coumadin -) 3 mg PO DAILY@1800 [facility] - Objective Vital Signs: Vital Signs Temperature 98 F 04/25/17 09:18 Pulse Rate 82 04/25/17 09:18 Respiratory Rate 18 04/25/17 09:18 Blood Pressure 126/58 04/25/17 09:18 O2 Sat by Pulse Oximetry (%) 100 04/24/17 22:00 Neck: Yes: Supple Cardiovascular: Yes: Regular Rate and Rhythm, Murmur (Soft SM), S1, S2 Respiratory: Yes: Diminished Gastrointestinal: Yes: Normal Bowel Sounds, Soft. No: Tenderness Edema: No Additional Findings/Remarks: - Review of Systems Constitutional: denies: Chills, Fever Cardiovascular: denies Chest Pain, denies: Palpitations, (+) Shortness of Breath Respiratory: denies: Cough, Hemoptysis, Orthopnea, PND,(+) SOB, SOB on Exertion Gastrointestinal: denies: Abdominal Pain, Constipation, Diarrhea, Melena, Nausea , Rectal Bleeding, Vomiting Genitourinary: denies: Flank Pain, Hematuria Musculoskeletal: denies: Joint Pain Neurological: denies: Dizziness, Headache, Seizure, Syncope Labs: CBC, BMP 04/25/17 05:25 04/25/17 05:25 INR, PTT INR 1.70 (0.82-1.09) H 04/25/17 05:25 Problem List - Problems (1) A-fib Code(s): I48.91 - UNSPECIFIED ATRIAL FIBRILLATION Qualifiers: Atrial fibrillation type: paroxysmal Qualified Code(s): I48.0 - Paroxysmal atrial fibrillation; I48.0 - Paroxysmal atrial fibrillation; I48.0 - Paroxysmal atrial fibrillation; I48.0 - Paroxysmal atrial fibrillation (2) CAD (coronary artery disease) Code(s): I25.10 - ATHSCL HEART DISEASE OF [place] CORONARY ARTERY W/O ANG PCTRS Qualifiers: Coronary Disease-Associated Artery/Lesion type: [place] artery [place] vs. transplanted heart: [place] heart Associated angina: without angina Qualified Code(s): I25.10 - Atherosclerotic heart disease of [place] coronary artery without angina pectoris; I25.10 - Atherosclerotic heart disease of [place] coronary artery without angina pectoris; I25.10 - Atherosclerotic heart disease of [place] coronary artery without angina pectoris (3) Chronic kidney disease (CKD) Code(s): N18.9 - CHRONIC KIDNEY DISEASE, UNSPECIFIED Qualifiers: Chronic kidney disease stage: stage 2 (mild) Qualified Code(s): N18.2 - Chronic kidney disease, stage 2 (mild); N18.2 - Chronic kidney disease, stage 2 (mild) (4) History of coronary artery stent placement Code(s): Z95.5 - PRESENCE OF CORONARY ANGIOPLASTY IMPLANT AND GRAFT (5) Hyperkalemia Code(s): E87.5 - HYPERKALEMIA (6) Hyperlipidemia Code(s): E78.5 - HYPERLIPIDEMIA, UNSPECIFIED Qualifiers: Hyperlipidemia type: pure hypercholesterolemia Qualified Code(s): E78.00 - Pure hypercholesterolemia, unspecified; E78.00 - Pure hypercholesterolemia, unspecified; E78.00 - Pure hypercholesterolemia, unspecified; E78.0 - Pure hypercholesterolemia Assessment/Plan 1. Acute on chronic LV failure - underlying severe LV systolic dysfunction with low LVEF 2. Paroxysmal atrial fibrillation 3. CAD h/o [place] s/p PCI (stent), angina pectoris 4. History of CVA with right-sided residual deficits 5. Chronic kidney disease with hyperkalemia 6. Presence of ILR PLAN: 1. IV diuresis with monitoring renal function and electrolytes. Aldactone was added 2. Continue Coumadin per INR 3. Transthoracic echocardiography revealed severely reduced LV systolic function with global hypokinesia, moderate RV dysfunction, moderate to severe MR , moderate TR, mild AR and moderate PA 4. Continue Lisinopril. 5. Continue Lipitor, Plavix and Toprol XL (but to consider switching to Carvedilol) 6. Assessment of LVEF in 3 months and if LVEF < 35%, consider ICD upgrade for primary prophylaxis Further plans are to follow Mikel Tam MD
--- NOTE | 2017-04-25 10:38 | PN ---
Progress Note, Physician History of Present Illness: PULMONARY ALERT,NAD,OOB-CHAIR,-CP,-SOB AT REST - Current Medication List Current Medications: Active Medications Acetaminophen (Tylenol -) 650 mg PO Q6H PRN PRN Reason: FEVER OR PAIN Last Admin: 04/23/17 22:24 Dose: 650 mg Albuterol/Ipratropium (Duoneb -) 1 amp NEB QIDR [facility] Last Admin: 04/25/17 07:12 Dose: 1 amp Atorvastatin Calcium (Lipitor -) 40 mg PO DAILY@1800 [facility] Last Admin: 04/24/17 17:48 Dose: 40 mg Clopidogrel Bisulfate (Plavix -) 75 mg PO DAILY [facility] Last Admin: 04/25/17 09:09 Dose: 75 mg Furosemide (Lasix Injection -) 40 mg IVPUSH DAILY [facility] Lisinopril (Prinivil) 10 mg PO DAILY [facility] Last Admin: 04/25/17 09:08 Dose: 10 mg Metoprolol Succinate (Toprol Xl -) 100 mg PO DAILY [facility] Last Admin: 04/25/17 09:09 Dose: 100 mg Ranitidine HCl (Zantac -) 150 mg PO DAILY [facility] Last Admin: 04/25/17 09:09 Dose: 150 mg Spironolactone (Aldactone -) 25 mg PO DAILY [facility] Last Admin: 04/25/17 09:10 Dose: 25 mg Warfarin Sodium (Coumadin -) 3 mg PO DAILY@1800 [facility] - Objective Vital Signs: Vital Signs Temperature 98 F 04/25/17 09:18 Pulse Rate 82 04/25/17 09:18 Respiratory Rate 18 04/25/17 09:18 Blood Pressure 126/58 04/25/17 09:18 O2 Sat by Pulse Oximetry (%) 100 04/24/17 22:00 Constitutional: Yes: Well Nourished, Calm Eyes: Yes: WNL HENT: Yes: WNL Neck: Yes: WNL Cardiovascular: Yes: Pulse Irregular, S1, S2 Respiratory: Yes: Rales (FEW BIBASIAR CRACKLES) Gastrointestinal: Yes: Normal Bowel Sounds, Soft Extremities: Yes: WNL Edema: No Labs: CBC, BMP 04/25/17 05:25 04/25/17 05:25 INR, PTT INR 1.70 (0.82-1.09) H 04/25/17 05:25 - ....Imaging Chest X-ray: Report Reviewed, Image Reviewed Problem List - Problems (1) A-fib Code(s): I48.91 - UNSPECIFIED ATRIAL FIBRILLATION Qualifiers: Atrial fibrillation type: paroxysmal Qualified Code(s): I48.0 - Paroxysmal atrial fibrillation; I48.0 - Paroxysmal atrial fibrillation; I48.0 - Paroxysmal atrial fibrillation; I48.0 - Paroxysmal atrial fibrillation (2) CAD (coronary artery disease) Code(s): I25.10 - ATHSCL HEART DISEASE OF [place] CORONARY ARTERY W/O ANG PCTRS Qualifiers: Coronary Disease-Associated Artery/Lesion type: [place] artery [place] vs. transplanted heart: [place] heart Associated angina: without angina Qualified Code(s): I25.10 - Atherosclerotic heart disease of [place] coronary artery without angina pectoris; I25.10 - Atherosclerotic heart disease of [place] coronary artery without angina pectoris; I25.10 - Atherosclerotic heart disease of [place] coronary artery without angina pectoris (3) CHF exacerbation Code(s): I50.9 - HEART FAILURE, UNSPECIFIED Qualifiers: Congestive heart failure type: systolic Qualified Code(s): I50.23 - Acute on chronic systolic (congestive) heart failure; I50.23 - Acute on chronic systolic (congestive) heart failure; I50.23 - Acute on chronic systolic ( congestive) heart failure; I50.23 - Acute on chronic systolic (congestive) heart failure (4) Chronic a-fib Code(s): I48.2 - CHRONIC ATRIAL FIBRILLATION (5) Chronic kidney disease (CKD) Code(s): N18.9 - CHRONIC KIDNEY DISEASE, UNSPECIFIED Qualifiers: Chronic kidney disease stage: stage 2 (mild) Qualified Code(s): N18.2 - Chronic kidney disease, stage 2 (mild); N18.2 - Chronic kidney disease, stage 2 (mild) (6) Exertional dyspnea Code(s): R06.09 - OTHER FORMS OF DYSPNEA (7) History of coronary artery stent placement Code(s): Z95.5 - PRESENCE OF CORONARY ANGIOPLASTY IMPLANT AND GRAFT (8) History of myocardial infarction Code(s): I25.2 - OLD MYOCARDIAL INFARCTION (9) [facility] (current) use of anticoagulants Code(s): Z79.01 - ASSISTED (CURRENT) USE OF ANTICOAGULANTS (10) Moderate to severe mitral regurgitation Code(s): I34.0 - NONRHEUMATIC MITRAL (VALVE) INSUFFICIENCY Assessment/Plan IMP ACUTE ON CHRONIC SYSTOLIC CHF IMPROVING SEVERE LV DYSFUNCTION ASHD S/P [place],S/P STENT X1 AFIB H/O CVA HLD GERD PLAN CONTINUE IV LASIX O2 DAILY WTS F/U CHEST X-RAY FURTHER W/U PER CARDIOLOGY SLEEP SCREEN JENNI MARCUS
--- NOTE | 2017-04-25 16:18 | PN ---
Physical Exam: SUBJECTIVE: Patient seen and examined at the bedside. She denies shortness of breath, denies chest pain. OBJECTIVE: Pre and post reveal the need for home oxygen, will re-evaluate prior to discharge Still of IV Lasix, supplemental oxygen as needed K. 3.3, given potassium Kdur 40meq x 1 Vital Signs Period Temp Pulse Resp BP Sys/Marcial Pulse Ox Last 24 Hr 97.7 F-98.1 F 74-85 18-20 115-137/57-74 86-100 GENERAL: The patient is awake, alert, and fully oriented, in no acute distress. HEAD: Normal with no signs of trauma. EYES: PERRL, extraocular movements intact, sclera anicteric, conjunctiva clear. No ptosis. ENT: Ears normal, nares patent, oropharynx clear without exudates, moist mucous membranes. NECK: Trachea midline, full range of motion, supple. LUNGS: diminished lung sounds, dyspnea at rest, will need supplemental oxygen for now HEART: Irregular, atrial fib. ABDOMEN: Soft, nontender, nondistended, normoactive bowel sounds, no guarding, no rebound, no hepatosplenomegaly, no masses. EXTREMITIES: +2 bilateral pitting edema NEUROLOGICAL: Normal speech, gait not observed. PSYCH: Normal mood, normal affect. SKIN: Warm, dry, normal turgor, no rashes or lesions noted Laboratory Results - last 24 hr 04/25/17 04/25/17 04/25/17 05:25 05:25 05:25 WBC 4.8 RBC 4.42 Hgb 9.3 L Hct 28.3 L MCV 64.0 L MCH 21.0 L MCHC 32.9 RDW 20.5 H Plt Count 265 MPV 9.5 Neutrophils % 52.7 Lymphocytes % 36.7 Monocytes % 7.6 Eosinophils % 2.3 Basophils % 0.7 PT with INR 19.20 H INR 1.70 H Sodium 143 Potassium 3.3 L Chloride 104 Carbon Dioxide 29 Anion Gap 10 BUN 19 H D Creatinine 0.8 Random Glucose 77 Calcium 8.1 L Phosphorus 3.1 Magnesium 1.9 Active Medications Generic Name Dose Route Start Last Admin Trade Name Freq PRN Reason Stop Dose Admin Acetaminophen 650 mg 04/23/17 22:00 04/23/17 22:24 Tylenol - PO 650 mg Q6H PRN Administration FEVER OR PAIN Albuterol/Ipratropium 1 amp 04/23/17 15:15 04/25/17 11:30 Duoneb - NEB 1 amp QIDR JULES Administration Atorvastatin Calcium 40 mg 04/24/17 18:00 04/24/17 17:48 Lipitor - PO 40 mg DAILY@1800 JULES Administration Clopidogrel Bisulfate 75 mg 04/22/17 10:00 04/25/17 09:09 Plavix - PO 75 mg DAILY JULES Administration Furosemide 40 mg 04/25/17 12:00 04/25/17 12:12 Lasix Injection - IVPUSH Not Given DAILY [facility] Lisinopril 20 mg 04/26/17 10:00 Prinivil PO DAILY [facility] Metoprolol Succinate 100 mg 04/25/17 10:00 04/25/17 09:09 Toprol Xl - PO 100 mg DAILY JULES Administration Ranitidine HCl 150 mg 04/22/17 10:00 04/25/17 09:09 Zantac - PO 150 mg DAILY JUL[facility] Administration Spironolactone 25 mg 04/24/17 17:00 04/25/17 09:10 Aldactone - PO 25 mg DAILY J[facility] Administration Warfarin Sodium 3 mg 04/25/17 18:00 Coumadin - PO DAILY@1800 [facility] ASSESSMENT/PLAN: Patient is a 76 year old female with a significant past medical history of hypertension, hyperlipidemia, CHF, CVA (R sided deficit, 2017), [place] s/p Stent x1 (2 months ago), Afib (on Coumadin), GERD, chronic lower ext edema. She presents to ED for dyspnea on exertion, increased bilateral lower extremity edema x 4 days. It was reported that patient has had increased weight gain as well. Patient denies fever, chills, chest pain or palpitations. [place] [address], Chest xray showed cardiomegaly. Hyperkalemia on admission at 5.8, now resolved. Imaging: Echocardiogram: Transthoracic echocardiography revealed severely reduced LV systolic function with global hypokinesia, moderate RV dysfunction, moderate to severe MR, moderate TR, mild AR and moderate [place] Cardiology: CHF Exacerbation, acute on chronic A/P: BNP elevated @ [id number] on admission: given Lasix in ED, now on Lasix 40mg IV BID, IV lasix to continue as per cardiology Monitor renal function Daily weights, strict intake and output Troponins negative x 3 Echo reviewed Tele Monitoring Monitor [facility] Cardiology following Hyperkalemia, resolved S/P: Now with HypoK, supplemented will restart home dose of K. Afib/Supratherapuetic INR on admission, INR now sub-therapeutic (1.7), to continue Coumadin increased dose tonight CAD, chronic A/p: Cardiac stent x 1, on Plavix Hypertension, controlled A/P: monitor BP On Metoprolol, Lisinopril, Plavix and Toprol XL Pulmonary: Shortness of breath/dyspnea on exertion A/P: Tolerating 2 liters of nasal cannula, respiratory pre and post shows patient needs home oxygen Lungs diminished, Steven scheduled ordered Pulmonary following Neuro CVA (R sided deficit, 2017) A/P: On Plavix, on Lipitor Lipid panel reviewed PT to follow F.E.N. Fluids: tolerating PO, restrict PO fluids to 1 liter Electrolytes: monitor Nutrition: low sodium Prophylaxis: DVT: On Coumadin, dose increased GI: Protonix Dispositon. Full code.
[2017-04-25] MEDS: ATORVASTATIN CA 40 MG TABLET (FP) PO SCH (17:07)
[2017-04-25] MEDS ORDERED: WARFARIN NA 3 MG TABLET PO SCH (18:00)
[2017-04-26] MEDS: ALBUTEROL SO4 2.5/IPRATROPIUM 0.5 INH SOL 3 ML VIAL.NEB. NEB SCH ×4 (06:28→23:19)
[2017-04-26 07:14] LABS: BASOPHIL 0.6 % (0-2.0); EOSINOPHIL 2.4 % (0-4.5); MCHC 32.5 g/dl (32.0-36.0); MEAN CELL VOLUME 64.7 fl (80-96); MEAN PLT VOLUME 9.4 fl (7.5-11.1); NEUTROPHILS 55.7 % (42.8-82.8); PLATELET COUNT 284 K/MM3 (134-434); RDW 20.5 % (11.6-15.6)
[2017-04-26 07:30] LABS: INR 1.55 (0.82-1.09); PROTHROMBIN TIME (PATIENT) 17.5 SEC (9.98-11.88)
[2017-04-26 07:40] LABS: ALBUMIN 2.8 g/dl (3.4-5.0); ANION GAP 8 (8-16); CALCIUM 8.3 mg/dL (8.5-10.1); CO2 29 mmol/L (21-32); GLUCOSE,RANDOM 78 mg/dL (74-106); MAGNESIUM 1.8 mg/dL (1.8-2.4); SGOT/AST 55 U/L (15-37)
[2017-04-26] MEDS ORDERED: HEPARIN NA (PORCINE) 5,000 UNITS/ML 1ML VIAL IVPUSH PRN ×2 (07:40)
[2017-04-26 07:43] LABS: ALK PHOS 93 U/L (45-117); BILIRUBIN,TOTAL 1.3 mg/dL (0.2-1.0); SGPT/ALT 84 U/L (12-78); TOT PROT 6.1 g/dl (6.4-8.2)
[2017-04-26] MEDS ORDERED: HEPARIN - 25,000 UNIT in SODIUM CHLORIDE 495 ML IV SCH (07:45)
[2017-04-26] MEDS: HEPARIN INFUSION - 500 ML IVPB SCH (09:17)
[2017-04-26] MEDS: LISINOPRIL 20 MG TABLET (FP) PO SCH (09:17)
[2017-04-26] MEDS: POTASSIUM CHLORIDE TABS 10 MEQ TABLET.ER (FP) PO SCH (09:17)
[2017-04-26] MEDS: FUROSEMIDE 40 MG/4 ML INJECTABLE VIAL IVPUSH SCH (09:17)
[2017-04-26] MEDS: RANITIDINE HCL 150 MG TABLET (FP) PO SCH (09:18)
[2017-04-26] MEDS: CLOPIDOGREL BISULFATE 75 MG TABLET (FP) PO SCH (09:18)
[2017-04-26] MEDS: METOPROLOL SUCCINATE 100 MG TAB.SR.24H (FP) PO SCH (09:19)
--- NOTE | 2017-04-26 10:24 | PN ---
Progress Note, Physician History of Present Illness: PCP: Dr. Petra Esparza [phone] Investment Underwriter: Dr. Rahul Cao [phone] Dyspnea on exertion, LE edema improving with diuresis. Denies chest pain. - Current Medication List Current Medications: Active Medications Acetaminophen (Tylenol -) 650 mg PO Q6H PRN PRN Reason: FEVER OR PAIN Last Admin: 04/23/17 22:24 Dose: 650 mg Albuterol/Ipratropium (Duoneb -) 1 amp NEB QIDR [facility] Last Admin: 04/26/17 06:28 Dose: 1 amp Atorvastatin Calcium (Lipitor -) 40 mg PO DAILY@1800 [facility] Last Admin: 04/25/17 17:07 Dose: 40 mg Clopidogrel Bisulfate (Plavix -) 75 mg PO DAILY [facility] Last Admin: 04/26/17 09:18 Dose: 75 mg Furosemide (Lasix Injection -) 40 mg IVPUSH DAILY [facility] Last Admin: 04/26/17 09:17 Dose: 40 mg Heparin Sodium (Porcine) (Heparin -) 1,000 unit IVPUSH PRN PRN PRN Reason: Heparin Heparin Sodium (Porcine) (Heparin -) 5,000 unit IVPUSH PRN PRN PRN Reason: Heparin Last Admin: 04/26/17 09:17 Dose: 5,000 unit Heparin Sodium/Dextrose (Heparin Infusion -) 500 mls @ 20 mls/hr IVPB TITR [facility] ; 1,000 UNITS/HR PRN Reason: Protocol Last Admin: 04/26/17 09:17 Dose: 20 mls/hr Lisinopril (Prinivil) 20 mg PO DAILY [facility] Last Admin: 04/26/17 09:17 Dose: 20 mg Metoprolol Succinate (Toprol Xl -) 100 mg PO DAILY [facility] Last Admin: 04/26/17 09:19 Dose: 100 mg Potassium Chloride (K-Dur -) 10 meq PO DAILY [facility] Last Admin: 04/26/17 09:17 Dose: 10 meq Ranitidine HCl (Zantac -) 150 mg PO DAILY [facility] Last Admin: 04/26/17 09:18 Dose: 150 mg Spironolactone (Aldactone -) 25 mg PO DAILY [facility] Last Admin: 04/25/17 09:10 Dose: 25 mg Warfarin Sodium (Coumadin -) 3 mg PO DAILY@1800 [facility] Last Admin: 04/25/17 18:22 Dose: 3 mg - Objective Vital Signs: Vital Signs Temperature 98.5 F 04/26/17 06:00 Pulse Rate 74 04/26/17 06:00 Respiratory Rate 20 04/26/17 06:00 Blood Pressure 128/71 04/26/17 06:00 O2 Sat by Pulse Oximetry (%) 99 04/25/17 21:00 Constitutional: Yes: No Distress, Calm Neck: Yes: Supple Cardiovascular: Yes: Regular Rate and Rhythm, Murmur (2/6) Respiratory: Yes: Regular, Diminished Gastrointestinal: Yes: Normal Bowel Sounds, Soft Edema: Yes Edema: LLE: Trace, RLE: Trace Labs: CBC, BMP 04/26/17 06:45 04/26/17 06:45 INR, PTT INR 1.55 (0.82-1.09) H 04/26/17 06:45 - ....Imaging EKG: Report Reviewed (Tele: SR) Problem List - Problems (1) A-fib Code(s): I48.91 - UNSPECIFIED ATRIAL FIBRILLATION Qualifiers: Atrial fibrillation type: paroxysmal Qualified Code(s): I48.0 - Paroxysmal atrial fibrillation; I48.0 - Paroxysmal atrial fibrillation; I48.0 - Paroxysmal atrial fibrillation; I48.0 - Paroxysmal atrial fibrillation (2) CAD (coronary artery disease) Code(s): I25.10 - ATHSCL HEART DISEASE OF [place] CORONARY ARTERY W/O ANG PCTRS Qualifiers: Coronary Disease-Associated Artery/Lesion type: [place] artery [place] vs. transplanted heart: [place] heart Associated angina: without angina Qualified Code(s): I25.10 - Atherosclerotic heart disease of [place] coronary artery without angina pectoris; I25.10 - Atherosclerotic heart disease of [place] coronary artery without angina pectoris; I25.10 - Atherosclerotic heart disease of [place] coronary artery without angina pectoris (3) CHF exacerbation Code(s): I50.9 - HEART FAILURE, UNSPECIFIED Qualifiers: Congestive heart failure type: systolic Qualified Code(s): I50.23 - Acute on chronic systolic (congestive) heart failure; I50.23 - Acute on chronic systolic (congestive) heart failure; I50.23 - Acute on chronic systolic ( congestive) heart failure; I50.23 - Acute on chronic systolic (congestive) heart failure (4) Elevated INR Code(s): R79.1 - ABNORMAL COAGULATION PROFILE (5) Exertional dyspnea Code(s): R06.09 - OTHER FORMS OF DYSPNEA (6) Hyperlipidemia Code(s): E78.5 - HYPERLIPIDEMIA, UNSPECIFIED Qualifiers: Hyperlipidemia type: pure hypercholesterolemia Qualified Code(s): E78.00 - Pure hypercholesterolemia, unspecified; E78.00 - Pure hypercholesterolemia, unspecified; E78.00 - Pure hypercholesterolemia, unspecified; E78.0 - Pure hypercholesterolemia (7) Chronic kidney disease (CKD) Code(s): N18.9 - CHRONIC KIDNEY DISEASE, UNSPECIFIED Qualifiers: Chronic kidney disease stage: stage 2 (mild) Qualified Code(s): N18.2 - Chronic kidney disease, stage 2 (mild); N18.2 - Chronic kidney disease, stage 2 (mild) (8) History of coronary artery stent placement Code(s): Z95.5 - PRESENCE OF CORONARY ANGIOPLASTY IMPLANT AND GRAFT (9) History of myocardial infarction Code(s): I25.2 - OLD MYOCARDIAL INFARCTION (10) cryptographer (current) use of anticoagulants Code(s): Z79.01 - SEED PELLETER (CURRENT) USE OF ANTICOAGULANTS (11) Non-sustained ventricular tachycardia Code(s): I47.2 - VENTRICULAR TACHYCARDIA (12) Moderate to severe mitral regurgitation Code(s): I34.0 - NONRHEUMATIC MITRAL (VALVE) INSUFFICIENCY Assessment/Plan 04/24/2017 Transthoracic echocardiography: Mildly dilated with severely decreased LV fxn, moderate decreased RV fxn, mild LAE, mod-severe MR, mod TR, mild AR, mod ME, small pericardial effusion 1. Acute on chronic systolic LV failure with mod-severe MR resolving 2. Paroxysmal atrial fibrillation -> SR with subtherapeutic INR 3. CAD h/o [place] s/p PCI (stent), angina pectoris 4. History of CVA with right-sided residual deficits post ILR implant 5. Acute kidney injury with hyperkalemia resolved 6. Non-sustained VT PLAN: 1. Decrease Lasix 40 po qd with monitoring diuretic response, renal function and electrolytes, replete for K>4.5, Mg>2.5 2. Continue Hep->Coumadin per INR 3. Continue Lisinopril 20 qd and Aldactone 25 qd 5. Continue Lipitor 40 qhs, Plavix 75 qd and increased Toprol XL 100 qd 6. Assessment of LVEF in 3 months and if LVEF < 35%, consider ICD upgrade for primary prophylaxis 7. Consider screening for sleep disordered breathing
[2017-04-26] MEDS: SPIRONOLACTONE 25 MG TABLET (FP) PO SCH (12:02)
--- NOTE | 2017-04-26 12:36 | PN ---
Progress Note (short form) - Note Progress Note: Reports feeling better. NAD on NC O2. Sleep screen (+) for Severe OSAS with an RDI of 30.1. Constitutional: Yes: Well Nourished, NAD Eyes: Yes: WNL HENT: Yes: WNL Neck: Yes: WNL Cardiovascular: Yes: Pulse Irregular, S1, S2 Respiratory: Yes: Few basilar Rales Gastrointestinal: Yes: Normal Bowel Sounds, Soft Extremities: Yes: WNL Edema: No Labs: Laboratory Results - last 24 hr 04/26/17 04/26/17 04/26/17 06:45 06:45 06:45 WBC 5.0 RBC 4.34 Hgb 9.1 L Hct 28.1 L MCV 64.7 L MCH 21.0 L MCHC 32.5 RDW 20.5 H Plt Count 284 MPV 9.4 Neutrophils % 55.7 Lymphocytes % 33.2 Monocytes % 8.1 Eosinophils % 2.4 Basophils % 0.6 PT with INR 17.50 H INR 1.55 H PTT (Actin FS) Sodium 141 Potassium 3.9 Chloride 104 Carbon Dioxide 29 Anion Gap 8 BUN 19 H Creatinine 1.0 D Creat Clearance w eGFR 53.62 Random Glucose 78 Calcium 8.3 L Magnesium 1.8 Total Bilirubin 1.3 H D AST 55 H ALT 84 H D Alkaline Phosphatase 93 Total Protein 6.1 L Albumin 2.8 L 04/26/17 08:22 WBC RBC Hgb Hct MCV MCH MCHC RDW Plt Count MPV Neutrophils % Lymphocytes % Monocytes % Eosinophils % Basophils % PT with INR INR PTT (Actin FS) 32.2 Sodium Potassium Chloride Carbon Dioxide Anion Gap BUN Creatinine Creat Clearance w eGFR Random Glucose Calcium Magnesium Total Bilirubin AST ALT Alkaline Phosphatase Total Protein Albumin Problem List - Problems (1) A-fib Code(s): I48.91 - UNSPECIFIED ATRIAL FIBRILLATION Qualifiers: Atrial fibrillation type: paroxysmal Qualified Code(s): I48.0 - Paroxysmal atrial fibrillation; I48.0 - Paroxysmal atrial fibrillation; I48.0 - Paroxysmal atrial fibrillation; I48.0 - Paroxysmal atrial fibrillation (2) CAD (coronary artery disease) Code(s): I25.10 - ATHSCL HEART DISEASE OF [place] CORONARY ARTERY W/O ANG PCTRS Qualifiers: Coronary Disease-Associated Artery/Lesion type: [place] artery [place] vs. transplanted heart: [place] heart Associated angina: without angina Qualified Code(s): I25.10 - Atherosclerotic heart disease of [place] coronary artery without angina pectoris; I25.10 - Atherosclerotic heart disease of [place] coronary artery without angina pectoris; I25.10 - Atherosclerotic heart disease of [place] coronary artery without angina pectoris (3) CHF exacerbation Code(s): I50.9 - HEART FAILURE, UNSPECIFIED Qualifiers: Congestive heart failure type: systolic Qualified Code(s): I50.23 - Acute on chronic systolic (congestive) heart failure; I50.23 - Acute on chronic systolic (congestive) heart failure; I50.23 - Acute on chronic systolic ( congestive) heart failure; I50.23 - Acute on chronic systolic (congestive) heart failure (4) Chronic a-fib Code(s): I48.2 - CHRONIC ATRIAL FIBRILLATION (5) Chronic kidney disease (CKD) Code(s): N18.9 - CHRONIC KIDNEY DISEASE, UNSPECIFIED Qualifiers: Chronic kidney disease stage: stage 2 (mild) Qualified Code(s): N18.2 - Chronic kidney disease, stage 2 (mild); N18.2 - Chronic kidney disease, stage 2 (mild) (6) Exertional dyspnea Code(s): R06.09 - OTHER FORMS OF DYSPNEA (7) History of coronary artery stent placement Code(s): Z95.5 - PRESENCE OF CORONARY ANGIOPLASTY IMPLANT AND GRAFT (8) History of myocardial infarction Code(s): I25.2 - OLD MYOCARDIAL INFARCTION (9) halfway (current) use of anticoagulants Code(s): Z79.01 - BRAKE RELINER (CURRENT) USE OF ANTICOAGULANTS (10) Moderate to severe mitral regurgitation Code(s): I34.0 - NONRHEUMATIC MITRAL (VALVE) INSUFFICIENCY Assessment/Plan IMP ACUTE ON CHRONIC SYSTOLIC CHF IMPROVING SEVERE LV DYSFUNCTION ASHD S/P [place],S/P STENT X1 AFIB H/O CVA HLD GERD SEVERE OSAS : SHOULD ALSO R/O CSA-PROTOTYPER DUE TO UNDERLYING CARDIAC ISSUES PLAN CONTINUE IV LASIX O2 DAILY WTS F/U CHEST X-RAY FURTHER W/U PER CARDIOLOGY ALTHOUGH SLEEP SCREEN IS (+) FOR SEVERE OSAS : SHOULD HAVE FORMAL NPSG TO R/O CSA-PROTOTYPER DUE TO CARDIAC MORBIDITIES DR REDDY
--- NOTE | 2017-04-26 14:57 | PN ---
Progress Note (short form) - Note Progress Note: Subjective: The patient was seen and examined at the bedside, she has no complaints at this time Current Medications Generic Name Dose Route Start Last Admin Trade Name Pennie PRN Reason Stop Dose Admin Acetaminophen 650 mg 04/23/17 22:00 04/23/17 22:24 Tylenol - PO 650 mg Q6H PRN Administration FEVER OR PAIN Albuterol/Ipratropium 1 amp 04/23/17 15:15 04/26/17 11:14 Duoneb - NEB Not Given QIDR [facility] Atorvastatin Calcium 40 mg 04/24/17 18:00 04/25/17 17:07 Lipitor - PO 40 mg DAILY@1800 [facility] Administration Clopidogrel Bisulfate 75 mg 04/22/17 10:00 04/26/17 09:18 Plavix - PO 75 mg DAILY [facility] Administration Furosemide 40 mg 04/27/17 10:00 Lasix - PO DAILY [facility] Heparin Sodium (Porcine) 1,000 unit 04/26/17 07:40 Heparin - IVPUSH PRN PRN Heparin Heparin Sodium (Porcine) 5,000 unit 04/26/17 07:40 04/26/17 09:17 Heparin - IVPUSH 5,000 unit PRN PRN Administration Heparin Heparin Sodium/Dextrose 500 mls @ 20 mls/hr 04/26/17 08:00 04/26/17 09:17 Heparin Infusion - IVPB 20 mls/hr TITR [facility] Administration Protocol 1,000 UNITS/HR Lisinopril 20 mg 04/26/17 10:00 04/26/17 09:17 Prinivil PO 20 mg DAILY [facility] Administration Metoprolol Succinate 100 mg 04/25/17 10:00 04/26/17 09:19 Toprol Xl - PO 100 mg DAILY [facility] Administration Potassium Chloride 10 meq 04/26/17 10:00 04/26/17 09:17 K-Dur - PO 10 meq DAILY [facility] Administration Ranitidine HCl 150 mg 04/22/17 10:00 04/26/17 09:18 Zantac - PO 150 mg DAILY [facility] Administration Spironolactone 25 mg 04/24/17 17:00 04/26/17 12:02 Aldactone - PO 25 mg DAILY [facility] Administration Warfarin Sodium 3 mg 04/25/17 18:00 04/25/17 18:22 Coumadin - PO 3 mg DAILY@1800 [facility] Administration Objective: Vital Signs Period Temp Pulse Resp BP Sys/Marcial Pulse Ox Last 24 Hr 98.1 F-98.5 F 73-84 20-20 118-128/61-84 97-99 Physical Exam: General: NAD, A&Ox3 Lungs: CTA bilaterally Heart: Irregular rate, S1S2 Abd: Soft, non-tender, non-distended. Normoactive bowel sounds Ext: Warm, well-perfused. 2+ DP/PT bilaterally Neuro: CN 2-12 intact CBCD WBC 5.0 K/mm3 (4.0-10.0) 04/26/17 06:45 RBC 4.34 M/mm3 (3.60-5.2) 04/26/17 06:45 Hgb 9.1 GM/dL (10.7-15.3) L 04/26/17 06:45 Hct 28.1 % (32.4-45.2) L 04/26/17 06:45 MCV 64.7 fl (80-96) L 04/26/17 06:45 MCHC 32.5 g/dl (32.0-36.0) 04/26/17 06:45 RDW 20.5 % (11.6-15.6) H 04/26/17 06:45 Plt Count 284 K/MM3 (134-434) 04/26/17 06:45 MPV 9.4 fl (7.5-11.1) 04/26/17 06:45 CMP Sodium 141 mmol/L (136-145) 04/26/17 06:45 Potassium 3.9 mmol/L (3.5-5.1) 04/26/17 06:45 Chloride 104 mmol/L (98-107) 04/26/17 06:45 Carbon Dioxide 29 mmol/L (21-32) 04/26/17 06:45 Anion Gap 8 (8-16) 04/26/17 06:45 BUN 19 mg/dL (7-18) H 04/26/17 06:45 Creatinine 1.0 mg/dL (0.55-1.02) D 04/26/17 06:45 Creat Clearance w eGFR 53.62 (>60) 04/26/17 06:45 Random Glucose 78 mg/dL (74-106) 04/26/17 06:45 Calcium 8.3 mg/dL (8.5-10.1) L 04/26/17 06:45 Total Bilirubin 1.3 mg/dL (0.2-1.0) H D 04/26/17 06:45 AST 55 U/L (15-37) H 04/26/17 06:45 ALT 84 U/L (12-78) H D 04/26/17 06:45 Alkaline Phosphatase 93 U/L (45-117) 04/26/17 06:45 Total Protein 6.1 g/dl (6.4-8.2) L 04/26/17 06:45 Albumin 2.8 g/dl (3.4-5.0) L 04/26/17 06:45 CARDIAC ENZYMES Creatine Kinase 81 IU/L (26-192) 04/21/17 19:00 Troponin I 0.03 ng/ml (0.00-0.05) 04/22/17 12:35 Assessment: This is a 76 year old female with PMHx of hypertension, hyperlipidemia, CHF, CVA (right sided deficit, 2017), CAD hx of [place] s/p stent x1 (2 months ago), A.fib (on Coumadin), GERD, chronic lower extremity edema, who presented to the ED with dyspnea on exertion, increase lower extremity edema, weight gain over several days. Plan: 1) Cardiology: Acute on chronic systolic LV failure with moderate to severe MR - Continue Lasix 40mg po daily - Keep K >4.5 - Keep Mg >2.5 - Continue Aldactone - Continue Lisinopril A.fib - INR subtherapeutic on Coumadin - Start on Heparin gtt today - Continue Toprol XL for rate control, increased to 100mg po daily HTN - As above Hyperlipidemia - Continue Lipitor CAD s/p stenting x1 - Continue Lavix 2) Pulmonary: Severe obstructive sleep apnea - Sleep screen here positive - Will need formal NPSG to r/o CSA 3) GI: GERD - Continue Zantac Elevated total bili, AST, ALT - Continue to trend - If worsening, consider ultrasound liver and hepatitis panel 4) F/E/N: - Sodium controlled, low cholesterol diet - Monitor electrolytes 5) Prophylaxis: - On Heparin gtt bridge to Coumadin - PT 6) Dispo: - Requires continued inpatient care CODE STATUS: FULL CODE Visit type - Emergency Visit Emergency Visit: Yes ED Registration Date: 04/23/17 Care time: The patient presented to the Emergency Department on the above date and was hospitalized for further evaluation of their emergent condition. - New Patient This patient is new to me today: Yes Date on this admission: 04/26/17 - Critical Care Critical Care patient: No
[2017-04-26] MEDS: ATORVASTATIN CA 40 MG TABLET (FP) PO SCH (18:07)
[2017-04-26] MEDS: WARFARIN NA 2 MG TABLET (UD) PO SCH (18:07)
[2017-04-26] MEDS: ACETAMINOPHEN 325 MG TABLET (FP) PO PRN (21:53)
[2017-04-27] MEDS: ALBUTEROL SO4 2.5/IPRATROPIUM 0.5 INH SOL 3 ML VIAL.NEB. NEB SCH ×3 (06:39→17:09)
[2017-04-27 07:51] LABS: MEAN CELL VOLUME 65.8 fl (80-96); MEAN PLT VOLUME 10.4 fl (7.5-11.1); PLATELET COUNT 301 K/MM3 (134-434); RDW 20.4 % (11.6-15.6); WHITE BLOOD COUNT 5.3 K/mm3 (4.0-10.0)
[2017-04-27 08:41] LABS: ALK PHOS 109 U/L (45-117); ANION GAP 11 (8-16); BILIRUBIN,TOTAL 1.5 mg/dL (0.2-1.0); CALCIUM 8.5 mg/dL (8.5-10.1); CO2 25 mmol/L (21-32); GLUCOSE,RANDOM 74 mg/dL (74-106); SGOT/AST 48 U/L (15-37); SGPT/ALT 79 U/L (12-78); TOT PROT 6.1 g/dl (6.4-8.2)
[2017-04-27 08:44] LABS: INR 1.67 (0.82-1.09); PROTHROMBIN TIME (PATIENT) 18.9 SEC (9.98-11.88)
--- NOTE | 2017-04-27 10:44 | PN ---
Progress Note (short form) - Note Progress Note: Chief Complaint: Events noted, notes reviewed, denies any chest pain, dyspnea improved History of Present Illness: Seen and examined on telemetry. Events noted, notes reviewed, denies any chest pain, dyspnea improved Medications: Current Medications Acetaminophen (Tylenol -) 650 mg PO Q6H PRN PRN Reason: FEVER OR PAIN Last Admin: 04/26/17 21:53 Dose: 650 mg Albuterol/Ipratropium (Duoneb -) 1 amp NEB QIDR [facility] Last Admin: 04/27/17 06:39 Dose: Not Given Atorvastatin Calcium (Lipitor -) 40 mg PO DAILY@1800 [facility] Last Admin: 04/26/17 18:07 Dose: 40 mg Clopidogrel Bisulfate (Plavix -) 75 mg PO DAILY [facility] Last Admin: 04/26/17 09:18 Dose: 75 mg Furosemide (Lasix -) 40 mg PO DAILY [facility] Heparin Sodium (Porcine) (Heparin -) 1,000 unit IVPUSH PRN PRN PRN Reason: Heparin Heparin Sodium (Porcine) (Heparin -) 5,000 unit IVPUSH PRN PRN PRN Reason: Heparin Last Admin: 04/26/17 09:17 Dose: 5,000 unit Heparin Sodium/Dextrose (Heparin Infusion -) 500 mls @ 20 mls/hr IVPB TITR [facility] ; 1,000 UNITS/HR PRN Reason: Protocol Last Admin: 04/27/17 00:00 Dose: 17 mls/hr Lisinopril (Prinivil) 20 mg PO DAILY [facility] Last Admin: 04/26/17 09:17 Dose: 20 mg Metoprolol Succinate (Toprol Xl -) 100 mg PO DAILY [facility] Last Admin: 04/26/17 09:19 Dose: 100 mg Potassium Chloride (K-Dur -) 10 meq PO DAILY [facility] Last Admin: 04/26/17 09:17 Dose: 10 meq Ranitidine HCl (Zantac -) 150 mg PO DAILY [facility] Last Admin: 04/26/17 09:18 Dose: 150 mg Spironolactone (Aldactone -) 25 mg PO DAILY [facility] Last Admin: 04/26/17 12:02 Dose: 25 mg Warfarin Sodium (Coumadin -) 4 mg PO DAILY@1800 [facility] Last Admin: 04/26/17 18:07 Dose: 4 mg Review of Systems Constitutional: denies: Chills, Fever Cardiovascular: As Noted Above Respiratory: denies: Cough or Sputum Production Gastrointestinal: denies: Abdominal Pain, Constipation, Diarrhea, Nausea, Vomiting Genitourinary: denies: Dysuria Musculoskeletal: No Symptoms Reported Neurological: denies: Dizziness, Headache Vital Signs: Last Vital Signs Temp Pulse Resp BP Pulse Ox 98.2 F 70 16 118/70 100 04/27/17 09:00 04/27/17 09:00 04/27/17 09:00 04/27/17 09:00 04/26/17 20:29 Intake & Output 04/24/17 04/25/17 04/26/17 04/27/17 23:59 23:59 23:59 23:59 Intake Total 550 310 510 Balance 550 310 510 Weight 140 lb 3.2 oz 140 lb 12.8 oz 139 lb 137 lb 12.8 oz Constitutional: No Distress, Calm Neck: Supple Negative JVD No Bruit Respiratory: Clear to A&P Bilaterally Cardiovascular: S1 S2 Irregularly Irregular Gastrointestinal: Soft Benign Normal Bowel Sounds Ext: Trace Edema Labs: CBC, BMP 04/27/17 05:35 04/27/17 05:35 INR, PTT INR 1.67 (0.82-1.09) H 04/27/17 08:10 Assessment/Plan ASSESSMENT: 1. Acute on chronic class II-III NYHA classification systolic LV failure, resolving 2. CAD post [place]/PCI (stent), angina pectoris 3. Paroxysmal atrial fibrillation currently in sinus rhythm with sub- therapeutic INR, [id number] score of 7 4. Non sustained VT 5. MR moderate to severe in severity 6. HTN 7. Hypercholesterolemia 8. History of CVA with right-sided residual deficits 9. Acute kidney injury, resolving PLAN: 1. Continue Lasix and Aldactone with caution and close monitoring of renal function 2. Continue Heparin/Coumadin bridging as per INR maintain INR 2-3 3. Continue Lisinopril close monitoring of renal function 4. Continue Toprol XL 5. Continue Lipitor 6. Continue Plavix with caution 7. As outlined in prior note assessment of LVEF in 3 months and if LVEF equal or < 35%, consider ICD implant for primary prophylaxis Moisés Rodriguez M.D.
[2017-04-27] MEDS: RANITIDINE HCL 150 MG TABLET (FP) PO SCH (10:57)
[2017-04-27] MEDS: LISINOPRIL 20 MG TABLET (FP) PO SCH (10:57)
[2017-04-27] MEDS: CLOPIDOGREL BISULFATE 75 MG TABLET (FP) PO SCH (10:57)
[2017-04-27] MEDS: FUROSEMIDE 40 MG TABLET (FP) PO SCH (10:57)
[2017-04-27] MEDS: SPIRONOLACTONE 25 MG TABLET (FP) PO SCH (10:57)
[2017-04-27] MEDS: METOPROLOL SUCCINATE 100 MG TAB.SR.24H (FP) PO SCH (10:57)
[2017-04-27] MEDS: POTASSIUM CHLORIDE TABS 10 MEQ TABLET.ER (FP) PO SCH (10:57)
--- NOTE | 2017-04-27 10:59 | PN ---
Progress Note (short form) - Note Progress Note: Subjective: The patient was seen and examined at the bedside, she has no complaints at this time Current Medications Generic Name Dose Route Start Last Admin Trade Name Pennie PRN Reason Stop Dose Admin Acetaminophen 650 mg 04/23/17 22:00 04/26/17 21:53 Tylenol - PO 650 mg Q6H PRN Administration FEVER OR PAIN Albuterol/Ipratropium 1 amp 04/23/17 15:15 04/27/17 06:39 Duoneb - NEB Not Given QIDR [facility] Atorvastatin Calcium 40 mg 04/24/17 18:00 04/26/17 18:07 Lipitor - PO 40 mg DAILY@1800 [facility] Administration Clopidogrel Bisulfate 75 mg 04/22/17 10:00 04/26/17 09:18 Plavix - PO 75 mg DAILY [facility] Administration Furosemide 40 mg 04/27/17 10:00 Lasix - PO DAILY [facility] Heparin Sodium (Porcine) 1,000 unit 04/26/17 07:40 Heparin - IVPUSH PRN PRN Heparin Heparin Sodium (Porcine) 5,000 unit 04/26/17 07:40 04/26/17 09:17 Heparin - IVPUSH 5,000 unit PRN PRN Administration Heparin Heparin Sodium/Dextrose 500 mls @ 20 mls/hr 04/26/17 08:00 04/27/17 00:00 Heparin Infusion - IVPB 17 mls/hr TITR [facility] Administration Protocol 1,000 UNITS/HR Lisinopril 20 mg 04/26/17 10:00 04/26/17 09:17 Prinivil PO 20 mg DAILY [facility] Administration Metoprolol Succinate 100 mg 04/25/17 10:00 04/26/17 09:19 Toprol Xl - PO 100 mg DAILY [facility] Administration Potassium Chloride 10 meq 04/26/17 10:00 04/26/17 09:17 K-Dur - PO 10 meq DAILY [facility] Administration Ranitidine HCl 150 mg 04/22/17 10:00 04/26/17 09:18 Zantac - PO 150 mg DAILY [facility] Administration Spironolactone 25 mg 04/24/17 17:00 04/26/17 12:02 Aldactone - PO 25 mg DAILY [facility] Administration Warfarin Sodium 4 mg 04/26/17 15:54 04/26/17 18:07 Coumadin - PO 4 mg DAILY@1800 [facility] Administration Objective: Vital Signs Period Temp Pulse Resp BP Sys/Marcial Pulse Ox Last 24 Hr 97.6 F-98.7 F 61-75 16-20 115-128/59-71 100 Physical Exam: General: NAD, A&Ox3 Lungs: CTA bilaterally Heart: Irregular rate, S1S2 Abd: Soft, non-tender, non-distended. Normoactive bowel sounds Ext: Warm, well-perfused. 2+ DP/PT bilaterally Neuro: CN 2-12 intact CBCD WBC 5.3 K/mm3 (4.0-10.0) 04/27/17 05:35 RBC 4.45 M/mm3 (3.60-5.2) 04/27/17 05:35 Hgb 9.4 GM/dL (10.7-15.3) L 04/27/17 05:35 Hct 29.3 % (32.4-45.2) L 04/27/17 05:35 MCV 65.8 fl (80-96) L 04/27/17 05:35 MCHC 32.0 g/dl (32.0-36.0) 04/27/17 05:35 RDW 20.4 % (11.6-15.6) H 04/27/17 05:35 Plt Count 301 K/MM3 (134-434) 04/27/17 05:35 MPV 10.4 fl (7.5-11.1) D 04/27/17 05:35 CMP Sodium 139 mmol/L (136-145) 04/27/17 05:35 Potassium 4.0 mmol/L (3.5-5.1) 04/27/17 05:35 Chloride 103 mmol/L (98-107) 04/27/17 05:35 Carbon Dioxide 25 mmol/L (21-32) 04/27/17 05:35 Anion Gap 11 (8-16) 04/27/17 05:35 BUN 20 mg/dL (7-18) H 04/27/17 05:35 Creatinine 1.0 mg/dL (0.55-1.02) 04/27/17 05:35 Creat Clearance w eGFR 53.62 (>60) 04/27/17 05:35 Random Glucose 74 mg/dL (74-106) 04/27/17 05:35 Calcium 8.5 mg/dL (8.5-10.1) 04/27/17 05:35 Total Bilirubin 1.5 mg/dL (0.2-1.0) H 04/27/17 05:35 AST 48 U/L (15-37) H 04/27/17 05:35 ALT 79 U/L (12-78) H 04/27/17 05:35 Alkaline Phosphatase 109 U/L (45-117) 04/27/17 05:35 Total Protein 6.1 g/dl (6.4-8.2) L 04/27/17 05:35 Albumin 3.0 g/dl (3.4-5.0) L 04/27/17 05:35 CARDIAC ENZYMES Creatine Kinase 81 IU/L (26-192) 04/21/17 19:00 Troponin I 0.03 ng/ml (0.00-0.05) 04/22/17 12:35 Assessment: This is a 76 year old female with PMHx of hypertension, hyperlipidemia, CHF, CVA (right sided deficit, 2017), CAD hx of [place] s/p stent x1 (2 months ago), A.fib (on Coumadin), GERD, chronic lower extremity edema, who presented to the ED with dyspnea on exertion, increase lower extremity edema, weight gain over several days. Plan: 1) Cardiology: Acute on chronic systolic LV failure with moderate to severe MR - Continue Lasix 40mg po daily - Keep K >4.5 - Keep Mg >2.5 - Continue Aldactone - Continue Lisinopril - LVEF in 3 months and if LVEF equal or < 35%, consider ICD implant for primary prophylaxis A.fib - INR subtherapeutic on Coumadin - Continue heparin gtt - Continue Toprol XL for rate control, increased to 100mg po daily HTN - As above Hyperlipidemia - Continue Lipitor CAD s/p stenting x1 - Continue Lavix 2) Pulmonary: Severe obstructive sleep apnea - Sleep screen here positive - Will need formal NPSG to r/o CSA 3) GI: GERD - Continue Zantac Elevated total bili, AST, ALT - Continue to trend - If worsening, consider ultrasound liver and hepatitis panel 4) F/E/N: - Sodium controlled, low cholesterol diet - Monitor electrolytes 5) Prophylaxis: - On Heparin gtt bridge to Coumadin - PT 6) Dispo: - Requires continued inpatient care CODE STATUS: FULL CODE Visit type - Emergency Visit Emergency Visit: Yes ED Registration Date: 04/23/17 Care time: The patient presented to the Emergency Department on the above date and was hospitalized for further evaluation of their emergent condition. - New Patient This patient is new to me today: No - Critical Care Critical Care patient: No
[2017-04-27] MEDS ORDERED: POTASSIUM CHLORIDE TABS 20 MEQ TABLET.ER (FP) PO ONE (11:30)
[2017-04-27] MEDS: HEPARIN INFUSION - 500 ML IVPB SCH ×2 (11:32)
[2017-04-27] MEDS ORDERED: MAGNESIUM OXIDE 400 MG TABLET (FP) PO ONE (14:00)
--- NOTE | 2017-04-27 15:01 | PN ---
Progress Note (short form) - Note Progress Note: PULMONARY APPEARS COMFORTABLE ON 02 VSS/AFEBRILE/SPO2 100% ROOM AIR ANICTERIC DISTANT S1S2 RSR BS+ NO EDEMA LABS/MEDS/NOTES/IMAGES/MICRO REVIEWED IMP ACUTE ON CHRONIC SYSTOLIC CHF SEVERE LV DYSFUNCTION ASHD S/P NC,S/P STENT X1 AFIB H/O CVA HLD GERD SEVERE OSAS PLAN CONTINUE IV LASIX O2 DAILY WTS F/U CHEST X-RAY FURTHER W/U PER CARDIOLOGY ?ICD/EF 27% PSG OUTPATIENT Korin TELLES MD
[2017-04-27] MEDS: WARFARIN NA 2 MG TABLET (UD) PO SCH (17:31)
[2017-04-27] MEDS: ATORVASTATIN CA 40 MG TABLET (FP) PO SCH (17:32)
[2017-04-28] MEDS: ALBUTEROL SO4 2.5/IPRATROPIUM 0.5 INH SOL 3 ML VIAL.NEB. NEB SCH ×3 (00:23→11:46)
[2017-04-28 06:47] LABS: INR 1.89 (0.82-1.09); PROTHROMBIN TIME (PATIENT) 21.4 SEC (9.98-11.88)
[2017-04-28 06:49] LABS: BASOPHIL 0.7 % (0-2.0); EOSINOPHIL 1.1 % (0-4.5); MCH 20.9 pg (25.7-33.7); MCHC 32.4 g/dl (32.0-36.0); MEAN CELL VOLUME 64.4 fl (80-96); MEAN PLT VOLUME 9.7 fl (7.5-11.1); NEUTROPHILS 55.7 % (42.8-82.8); PLATELET COUNT 299 K/MM3 (134-434); RDW 20.7 % (11.6-15.6); WHITE BLOOD COUNT 5.8 K/mm3 (4.0-10.0)
[2017-04-28 07:50] LABS: ALBUMIN 2.9 g/dl (3.4-5.0); ANION GAP 9 (8-16); CALCIUM 8.4 mg/dL (8.5-10.1); CO2 26 mmol/L (21-32); CREATININE 0.9 mg/dL (0.55-1.02); GLUCOSE,RANDOM 79 mg/dL (74-106); SGPT/ALT 67 U/L (12-78); TOT PROT 5.9 g/dl (6.4-8.2)
[2017-04-28 07:56] LABS: ALK PHOS 105 U/L (45-117); BILIRUBIN,TOTAL 1.5 mg/dL (0.2-1.0)
[2017-04-28] MEDS: HEPARIN INFUSION - 500 ML IVPB SCH (08:00)
[2017-04-28 08:27] LABS: SGOT/AST 33 U/L (15-37)
[2017-04-28 09:57] LABS: ANISOCYTOSIS 2+; HYPOCHROMIA 2+; MICROCYTOSIS 2+; TARGET CELLS 2+
[2017-04-28 09:59] LABS: MAGNESIUM 1.8 mg/dL (1.8-2.4)
[2017-04-28] MEDS: METOPROLOL SUCCINATE 100 MG TAB.SR.24H (FP) PO SCH (10:01)
[2017-04-28] MEDS: RANITIDINE HCL 150 MG TABLET (FP) PO SCH (10:01)
[2017-04-28] MEDS: POTASSIUM CHLORIDE TABS 10 MEQ TABLET.ER (FP) PO SCH (10:02)
[2017-04-28] MEDS: LISINOPRIL 20 MG TABLET (FP) PO SCH (10:02)
[2017-04-28] MEDS: SPIRONOLACTONE 25 MG TABLET (FP) PO SCH ×2 (10:02→21:37)
[2017-04-28] MEDS: CLOPIDOGREL BISULFATE 75 MG TABLET (FP) PO SCH (10:02)
[2017-04-28] MEDS: FUROSEMIDE 40 MG TABLET (FP) PO SCH (10:02)
--- NOTE | 2017-04-28 10:31 | PN ---
Progress Note (short form) - Note Progress Note: Chief Complaint: Events noted, notes reviewed, denies any chest pain, dyspnea persists but improving History of Present Illness: Seen and examined on telemetry. Events noted, notes reviewed, denies any chest pain, dyspnea persists but improving Non sustained ventricular tachycardia noted yesterday, 19 beats total (duration less than 30 seconds), considering patient's clinical presentation with recent [place] post PCI/stent, congestive heart failure with LVEF < 35%, ICD implant is recommended only issue is timing of procedure since PCI/stent was performed recently and waiting periods by guidelines is 90 days post per-cutaneous coronary intervention, as an alternative Life-vest would be recommended, will obtain an EP consult, Dr. Freddy De La Paz (contacted already), above was reviewed with patient's son Riky Dela Cruz ( Suzanne to be contacted in am regarding final decision at [phone]) Medications: Current Medications Acetaminophen (Tylenol -) 650 mg PO Q6H PRN PRN Reason: FEVER OR PAIN Last Admin: 04/26/17 21:53 Dose: 650 mg Albuterol/Ipratropium (Duoneb -) 1 amp NEB QIDR [facility] Last Admin: 04/28/17 06:43 Dose: Not Given Atorvastatin Calcium (Lipitor -) 40 mg PO DAILY@1800 [facility] Last Admin: 04/27/17 17:32 Dose: 40 mg Clopidogrel Bisulfate (Plavix -) 75 mg PO DAILY [facility] Last Admin: 04/28/17 10:02 Dose: 75 mg Furosemide (Lasix -) 40 mg PO DAILY [facility] Last Admin: 04/28/17 10:02 Dose: 40 mg Heparin Sodium (Porcine) (Heparin -) 1,000 unit IVPUSH PRN PRN PRN Reason: Heparin Heparin Sodium (Porcine) (Heparin -) 5,000 unit IVPUSH PRN PRN PRN Reason: Heparin Last Admin: 04/26/17 09:17 Dose: 5,000 unit Heparin Sodium/Dextrose (Heparin Infusion -) 500 mls @ 20 mls/hr IVPB TITR [facility] ; 1,000 UNITS/HR PRN Reason: Protocol Last Admin: 04/27/17 11:32 Dose: 15 mls/hr Lisinopril (Prinivil) 20 mg PO DAILY [facility] Last Admin: 04/28/17 10:02 Dose: 20 mg Metoprolol Succinate (Toprol Xl -) 100 mg PO DAILY [facility] Last Admin: 04/28/17 10:01 Dose: 100 mg Potassium Chloride (K-Dur -) 10 meq PO DAILY [facility] Last Admin: 04/28/17 10:02 Dose: 10 meq Ranitidine HCl (Zantac -) 150 mg PO DAILY [facility] Last Admin: 04/28/17 10:01 Dose: 150 mg Spironolactone (Aldactone -) 25 mg PO DAILY [facility] Last Admin: 04/28/17 10:02 Dose: 25 mg Warfarin Sodium (Coumadin -) 4 mg PO DAILY@1800 [facility] Last Admin: 04/27/17 17:31 Dose: 4 mg Review of Systems Constitutional: denies: Chills, Fever Cardiovascular: As Noted Above Respiratory: denies: Cough or Sputum Production Gastrointestinal: denies: Abdominal Pain, Constipation, Diarrhea, Nausea, Vomiting Genitourinary: denies: Dysuria Musculoskeletal: No Symptoms Reported Neurological: denies: Dizziness, Headache Vital Signs: Last Vital Signs Temp Pulse Resp BP Pulse Ox 98.2 F 72 16 120/64 95 04/28/17 08:05 04/28/17 08:05 04/28/17 08:05 04/28/17 08:05 04/27/17 20:30 Intake & Output 04/25/17 04/26/17 04/27/17 04/28/17 23:59 23:59 23:59 23:59 Intake Total 310 510 684 Balance 310 510 684 Weight 140 lb 12.8 oz 139 lb 137 lb 12.8 oz 139 lb 9.6 oz Constitutional: No Distress, Calm Neck: Supple Negative JVD No Bruit Respiratory: Clear to A&P Bilaterally Cardiovascular: S1 S2 Regular Rate and Rhythm Grade 2-3/6 SM Gastrointestinal: Soft Benign Normal Bowel Sounds Ext: Trace Edema Labs: CBC, BMP 04/28/17 05:35 04/28/17 05:35 INR, PTT INR 1.89 (0.82-1.09) H 04/28/17 05:35 Assessment/Plan ASSESSMENT: 1. Acute on chronic class II-III NYHA classification systolic LV failure, resolving 2. CAD post [place]/PCI (stent), angina pectoris 3. Paroxysmal atrial fibrillation currently in sinus rhythm with sub- therapeutic INR, [id number] score of 7 4. Non sustained VT (duration < 30 seconds) 5. MR moderate to severe in severity 6. HTN 7. Hypercholesterolemia 8. History of CVA with right-sided residual deficits 9. Acute kidney injury, resolved 10. Anemia PLAN: 1. Continue Lasix and Aldactone (titrate dosage) with caution and close monitoring of renal function 2. Continue Heparin/Coumadin bridging as per INR maintain INR 2-3 3. Continue Lisinopril close monitoring of renal function, and Entersto initiation as outpatient once euvolemic 4. Continue Toprol XL 5. Continue Lipitor 6. Continue Plavix with caution considering the above noted anemia 7. As outlined above regarding proceeding with prophylactic ICD implant in 90 days from date of coronary PCI/stent implant, in the interim to utilize Life- Vest, in addition to obtain an EP consult Moisés Rodriguez M.D.
--- NOTE | 2017-04-28 11:31 | PN ---
Progress Note (short form) - Note Progress Note: Subjective: The patient was seen and examined at the bedside, she has no complaints at this time NSVT (19 beats total) yesterday Current Medications Generic Name Dose Route Start Last Admin Trade Name Freq PRN Reason Stop Dose Admin Acetaminophen 650 mg 04/23/17 22:00 04/26/17 21:53 Tylenol - PO 650 mg Q6H PRN Administration FEVER OR PAIN Albuterol/Ipratropium 1 amp 04/23/17 15:15 04/28/17 06:43 Duoneb - NEB Not Given QIDR [facility] Atorvastatin Calcium 40 mg 04/24/17 18:00 04/27/17 17:32 Lipitor - PO 40 mg DAILY@1800 [facility] Administration Clopidogrel Bisulfate 75 mg 04/22/17 10:00 04/28/17 10:02 Plavix - PO 75 mg DAILY [facility] Administration Furosemide 40 mg 04/27/17 10:00 04/28/17 10:02 Lasix - PO 40 mg DAILY [facility] Administration Heparin Sodium (Porcine) 1,000 unit 04/26/17 07:40 Heparin - IVPUSH PRN PRN Heparin Heparin Sodium (Porcine) 5,000 unit 04/26/17 07:40 04/26/17 09:17 Heparin - IVPUSH 5,000 unit PRN PRN Administration Heparin Heparin Sodium/Dextrose 500 mls @ 20 mls/hr 04/26/17 08:00 04/27/17 11:32 Heparin Infusion - IVPB 15 mls/hr TITR [facility]UL[facility] Administration Protocol 1,000 UNITS/HR Lisinopril 20 mg 04/26/17 10:00 04/28/17 10:02 Prinivil PO 20 mg DAILY [facility] Administration Metoprolol Succinate 100 mg 04/25/17 10:00 04/28/17 10:01 Toprol Xl - PO 100 mg DAILY [facility] Administration Potassium Chloride 10 meq 04/26/17 10:00 04/28/17 10:02 K-Dur - PO 10 meq DAILY [facility] Administration Ranitidine HCl 150 mg 04/22/17 10:00 04/28/17 10:01 Zantac - PO 150 mg DAILY [facility] Administration Spironolactone 25 mg 04/28/17 22:00 Aldactone - PO BID [facility] Warfarin Sodium 4 mg 04/26/17 15:54 04/27/17 17:31 Coumadin - PO 4 mg DAILY@1800 [facility] Administration Objective: Vital Signs Period Temp Pulse Resp BP Sys/Marcial Pulse Ox Last 24 Hr 98.0 F-98.6 F 68-72 16-20 104-125/55-71 95 Physical Exam: General: NAD, A&Ox3 Lungs: CTA bilaterally Heart: Irregular rate, S1S2 Abd: Soft, non-tender, non-distended. Normoactive bowel sounds Ext: Warm, well-perfused. 2+ DP/PT bilaterally Neuro: CN 2-12 intact CBCD WBC 5.8 K/mm3 (4.0-10.0) 04/28/17 05:35 RBC 4.35 M/mm3 (3.60-5.2) 04/28/17 05:35 Hgb 9.1 GM/dL (10.7-15.3) L 04/28/17 05:35 Hct 28.0 % (32.4-45.2) L 04/28/17 05:35 MCV 64.4 fl (80-96) L 04/28/17 05:35 MCHC 32.4 g/dl (32.0-36.0) 04/28/17 05:35 RDW 20.7 % (11.6-15.6) H 04/28/17 05:35 Plt Count 299 K/MM3 (134-434) 04/28/17 05:35 MPV 9.7 fl (7.5-11.1) 04/28/17 05:35 CMP Sodium 139 mmol/L (136-145) 04/28/17 05:35 Potassium 4.6 mmol/L (3.5-5.1) 04/28/17 05:35 Chloride 104 mmol/L (98-107) 04/28/17 05:35 Carbon Dioxide 26 mmol/L (21-32) 04/28/17 05:35 Anion Gap 9 (8-16) 04/28/17 05:35 BUN 17 mg/dL (7-18) 04/28/17 05:35 Creatinine 0.9 mg/dL (0.55-1.02) 04/28/17 05:35 Creat Clearance w eGFR > 60 (>60) 04/28/17 05:35 Random Glucose 79 mg/dL (74-106) 04/28/17 05:35 Calcium 8.4 mg/dL (8.5-10.1) L 04/28/17 05:35 Total Bilirubin 1.5 mg/dL (0.2-1.0) H 04/28/17 05:35 AST 33 U/L (15-37) D 04/28/17 05:35 ALT 67 U/L (12-78) 04/28/17 05:35 Alkaline Phosphatase 105 U/L (45-117) 04/28/17 05:35 Total Protein 5.9 g/dl (6.4-8.2) L 04/28/17 05:35 Albumin 2.9 g/dl (3.4-5.0) L 04/28/17 05:35 CARDIAC ENZYMES Creatine Kinase 81 IU/L (26-192) 04/21/17 19:00 Troponin I 0.03 ng/ml (0.00-0.05) 04/22/17 12:35 Assessment: This is a 76 year old female with PMHx of hypertension, hyperlipidemia, CHF, CVA (right sided deficit, 2017), CAD hx of [place] s/p stent x1 (2 months ago), A.fib (on Coumadin), GERD, chronic lower extremity edema, who presented to the ED with dyspnea on exertion, increase lower extremity edema, weight gain over several days. Plan: 1) Cardiology: NSVT - 19 beats on tele yesterday - Given recent [place]/stenting 2 months ago and LVEF <35%, ICD is recommended but will need to wait 90 days from PCI. Life vest recommended by cardiology. Dr. Freddy De La Paz, EP consult called by cardiology Acute on chronic systolic LV failure with moderate to severe MR - Continue Lasix 40mg po daily - Keep K >4.5 - Keep Mg >2.5 - Continue Aldactone 25mg po bid - Continue Lisinopril 20mg po daily A.fib - INR subtherapeutic on Coumadin - Continue heparin gtt - Continue Toprol XL for rate control, increased to 100mg po daily HTN - As above Hyperlipidemia - Continue Lipitor CAD s/p stenting 2 months - Continue Plavix 2) Pulmonary: Severe obstructive sleep apnea - Sleep screen here positive - Will need formal NPSG to r/o CSA 3) GI: GERD - Continue Zantac Elevated total bili, AST, ALT - Continue to trend - If worsening, consider ultrasound liver and hepatitis panel 4) F/E/N: - Sodium controlled, low cholesterol diet - Monitor electrolytes 5) Prophylaxis: - On Heparin gtt bridge to Coumadin - PT 6) Dispo: - Requires continued inpatient care CODE STATUS: FULL CODE Visit type - Emergency Visit Emergency Visit: Yes ED Registration Date: 04/23/17 Care time: The patient presented to the Emergency Department on the above date and was hospitalized for further evaluation of their emergent condition. - New Patient This patient is new to me today: No - Critical Care Critical Care patient: No
--- NOTE | 2017-04-28 13:47 | PN ---
Progress Note (short form) - Note Progress Note: PULMONARY APPEARS COMFORTABLE ON 02 subjective improvement noted VSS/AFEBRILE/ ANICTERIC DISTANT S1S2 RSR BS+ NO EDEMA LABS/MEDS/NOTES/IMAGES/MICRO REVIEWED IMP ACUTE ON CHRONIC SYSTOLIC CHF SEVERE LV DYSFUNCTION ASHD S/P AR,S/P STENT X1 AFIB H/O CVA HLD GERD SEVERE OSAS PLAN CONTINUE IV LASIX O2 DAILY WTS F/U CHEST X-RAY FURTHER W/U PER CARDIOLOGY ICD planned as per cardiology PSG OUTPATIENT Korin TELLES MD
--- NOTE | 2017-04-28 17:04 | CON.CARD ---
Consult Consult Specialty:: EPS Referred by:: Dr. Rodriguez Reason for Consultation:: NSVT, reduced LVEF - History of Present Illness Chief Complaint: Dyspnea History of Present Illness: Ms. Dela Cruz is a pleasant 76 year old female with a pmh of htn, inc chol, chf, CVA with right sided deficit s/p [employer] LINQ ILR 07/2016, cad s/p [place] s/p PCI , PAF on coumadin, who presented for evaluation secondary to increasing dyspnea. Telemetry monitoring demonstrated nsvt with an episode lasting approximately 12 secs on 04/24/17 from which she describes being asymptomatic. Her dyspnea has improved with treatment She had an echo done in 07/2016 with an EF of 15% and severe MR. Due to a cryptogenic stroke, a LINQ was implanted also in 07/2016. Thereafter, PAF was detected. There have been no complaints of chest pain, palpitations, near or true syncope. 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 Cardio/Vascular: Yes: AFIB, CAD, CHF, HTN, Hyperlipdemia, Mitral Insufficiency Gastrointestinal: Yes: GERD - Past Surgical History Past Surgical History: Yes: Stent - Alcohol/Substance Use Hx Alcohol Use: No - Smoking History Smoking history: Never smoked Have you smoked in the past 12 months: No Home Medications - Allergies Allergies/Adverse Reactions: Allergies Allergy/AdvReac Type Severity Reaction Status Date / Time No Known Allergies Allergy Verified 04/21/17 17:43 - Home Medications Home Medications: Ambulatory Orders Atorvastatin Ca [Lipitor] 80 mg PO HS 04/21/17 Clopidogrel Bisulfate [Clopidogrel] 75 mg PO 04/21/17 Famotidine [Pepcid -] 40 mg PO DAILY 04/21/17 Furosemide [Lasix -] 40 mg PO BID 04/21/17 Lisinopril [Prinivil] 20 mg PO DAILY 04/21/17 Metoprolol Succinate [Toprol Xl -] 50 mg PO DAILY 04/21/17 Potassium Chloride 10 meq PO 04/21/17 Warfarin Sodium [Coumadin] 2.5 mg PO 04/21/17 Family Disease History - Family Disease History Family History: Unremarkable Review of Systems - Review of Systems Constitutional: denies: Chills, Fever HENT: denies: Epistaxis Cardiovascular: reports: Edema, Shortness of Breath. denies: Chest Pain, Palpitations Respiratory: denies: Hemoptysis, Wheezing Gastrointestinal: denies: Nausea, Vomiting Neurological: reports: Change in Speech. denies: Syncope Vital Signs: Vital Signs Temperature 98.9 F 04/28/17 14:00 Pulse Rate 69 04/28/17 14:00 Respiratory Rate 18 04/28/17 14:00 Blood Pressure 104/53 04/28/17 14:00 O2 Sat by Pulse Oximetry (%) 95 04/28/17 09:00 Constitutional: Yes: Well Nourished Neck: Yes: WNL Respiratory: Yes: Regular, CTA Bilaterally Gastrointestinal: Yes: Normal Bowel Sounds, Soft Cardiovascular: Yes: Regular Rate and Rhythm JVD: No Carotid Bruit: No Heart Sounds: Yes: S1, S2 Murmur: Yes: Systolic Murmur, Grade 2 Edema: Yes Edema: LLE: Trace, RLE: Trace Neurological: Yes: Dysarthria - Other Data Labs, Other Data: CBC, BMP 04/28/17 05:35 04/28/17 05:35 INR, PTT INR 1.89 (0.82-1.09) H 04/28/17 05:35 Echo: Report Reviewed Prior Cardiac Procedures: PTCA with Stent Ejection Fraction %: LVEF < 40 % Imaging - Results EKG: Image Reviewed Problem List - Problems (1) Non-sustained ventricular tachycardia Code(s): I47.2 - VENTRICULAR TACHYCARDIA (2) A-fib Code(s): I48.91 - UNSPECIFIED ATRIAL FIBRILLATION Qualifiers: Atrial fibrillation type: paroxysmal Qualified Code(s): I48.0 - Paroxysmal atrial fibrillation; I48.0 - Paroxysmal atrial fibrillation; I48.0 - Paroxysmal atrial fibrillation; I48.0 - Paroxysmal atrial fibrillation (3) CAD (coronary artery disease) Code(s): I25.10 - ATHSCL HEART DISEASE OF [place] CORONARY ARTERY W/O ANG PCTRS Qualifiers: Coronary Disease-Associated Artery/Lesion type: [place] artery [place] vs. transplanted heart: [place] heart Associated angina: without angina Qualified Code(s): I25.10 - Atherosclerotic heart disease of [place] coronary artery without angina pectoris; I25.10 - Atherosclerotic heart disease of [place] coronary artery without angina pectoris; I25.10 - Atherosclerotic heart disease of [place] coronary artery without angina pectoris Assessment/Plan 04/28/17: JVD EPS: nsvt, 12 sec duration, asymptomatic, on 04-24-17 and no significant events on telemetry since then. cad with EF 15%. narrow complex rhythm. on a/c for paf. pci 03/2017. no sustained vt noted. - recommend uptitrating beta-rose mary therapy as tolerated - keep k 4-4.5, mg 2-2.5 - repeat echo 3 months post pci. if EF remains reduced, recommend ICD implant - recommend interrogation of ILR to see if any other significant underlying arrhythmias noted - lifevest while in waiting period - care as per cardiology. above d/w Dr. Rodriguez Thank you for allowing me to participate in the care of this patient. Please call with any questions. Freddy De La Paz MD
[2017-04-28] MEDS ORDERED: SIMETHICONE 80 MG TAB.CHEW (FP) PO PRN (17:13)
[2017-04-28] MEDS: WARFARIN NA 2 MG TABLET (UD) PO SCH (17:30)
[2017-04-28] MEDS ORDERED: MAGNESIUM OXIDE 400 MG TABLET (FP) PO ONE ×2 (18:23→21:45)
[2017-04-28] MEDS: ATORVASTATIN CA 40 MG TABLET (FP) PO SCH (21:37)
[2017-04-29 06:59] LABS: MCH 20.9 pg (25.7-33.7); MCHC 32.6 g/dl (32.0-36.0); MEAN CELL VOLUME 64.1 fl (80-96); MEAN PLT VOLUME 10.1 fl (7.5-11.1); PLATELET COUNT 319 K/MM3 (134-434); RDW 20.5 % (11.6-15.6); WHITE BLOOD COUNT 5.6 K/mm3 (4.0-10.0)
[2017-04-29 07:13] LABS: INR 2.07 (0.82-1.09); PROTHROMBIN TIME (PATIENT) 23.4 SEC (9.98-11.88)
[2017-04-29 08:55] LABS: BASOPHIL 1.7 % (0-2.0); EOSINOPHIL 0.9 % (0-4.5); MCH 20.7 pg (25.7-33.7); MCHC 32.1 g/dl (32.0-36.0); MEAN CELL VOLUME 64.5 fl (80-96); MEAN PLT VOLUME 10.3 fl (7.5-11.1); NEUTROPHILS 58.9 % (42.8-82.8); PLATELET COUNT 329 K/MM3 (134-434); RDW 20.1 % (11.6-15.6); WHITE BLOOD COUNT 5.8 K/mm3 (4.0-10.0)
[2017-04-29 09:29] LABS: ANION GAP 10 (8-16); CALCIUM 8.8 mg/dL (8.5-10.1); CO2 25 mmol/L (21-32); GLUCOSE,RANDOM 80 mg/dL (74-106); MAGNESIUM 1.9 mg/dL (1.8-2.4); SGOT/AST 22 U/L (15-37); SGPT/ALT 60 U/L (12-78)
[2017-04-29 09:30] LABS: ALK PHOS 107 U/L (45-117); BILIRUBIN,TOTAL 1.3 mg/dL (0.2-1.0); TOT PROT 6.1 g/dl (6.4-8.2)
--- NOTE | 2017-04-29 09:41 | PN ---
Progress Note, Physician History of Present Illness: PCP: Dr. 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 Rahul Cao [phone] Dyspnea on exertion, LE edema improving with diuresis. Denies chest pain. - Current Medication List Current Medications: Active Medications Acetaminophen (Tylenol -) 650 mg PO Q6H PRN PRN Reason: FEVER OR PAIN Last Admin: 04/26/17 21:53 Dose: 650 mg Atorvastatin Calcium (Lipitor -) 40 mg PO DAILY@1800 [facility] Last Admin: 04/28/17 21:37 Dose: 40 mg Clopidogrel Bisulfate (Plavix -) 75 mg PO DAILY [facility] Last Admin: 04/28/17 10:02 Dose: 75 mg Furosemide (Lasix -) 40 mg PO DAILY [facility] Last Admin: 04/28/17 10:02 Dose: 40 mg Heparin Sodium (Porcine) (Heparin -) 1,000 unit IVPUSH PRN PRN PRN Reason: Heparin Heparin Sodium (Porcine) (Heparin -) 5,000 unit IVPUSH PRN PRN PRN Reason: Heparin Last Admin: 04/26/17 09:17 Dose: 5,000 unit Heparin Sodium/Dextrose (Heparin Infusion -) 500 mls @ 20 mls/hr IVPB TITR [facility] ; 1,000 UNITS/HR PRN Reason: Protocol Last Admin: 04/28/17 08:00 Dose: 14 mls/hr Lisinopril (Prinivil) 20 mg PO DAILY [facility] Last Admin: 04/28/17 10:02 Dose: 20 mg Metoprolol Succinate (Toprol Xl -) 100 mg PO DAILY [facility] Last Admin: 04/28/17 10:01 Dose: 100 mg Potassium Chloride (K-Dur -) 10 meq PO DAILY [facility] Last Admin: 04/28/17 10:02 Dose: 10 meq Ranitidine HCl (Zantac -) 150 mg PO DAILY [facility] Last Admin: 04/28/17 10:01 Dose: 150 mg Simethicone (Mylicon -) 80 mg PO QID PRN PRN Reason: GAS Last Admin: 04/28/17 17:30 Dose: 80 mg Spironolactone (Aldactone -) 25 mg PO BID [facility] Last Admin: 04/28/17 21:37 Dose: 25 mg Warfarin Sodium (Coumadin -) 4 mg PO DAILY@1800 [facility] Last Admin: 04/28/17 17:30 Dose: 4 mg - Objective Vital Signs: Vital Signs Temperature 97.9 F 04/29/17 02:00 Pulse Rate 67 04/29/17 06:00 Respiratory Rate 20 04/29/17 06:00 Blood Pressure 115/67 04/29/17 06:00 O2 Sat by Pulse Oximetry (%) 98 04/28/17 20:28 Constitutional: Yes: No Distress, Calm, Thin Neck: Yes: Supple Cardiovascular: Yes: Regular Rate and Rhythm, Murmur (2/6 SM) Respiratory: Yes: Regular, Diminished Gastrointestinal: Yes: Normal Bowel Sounds, Soft Edema: No Labs: CBC, BMP 04/29/17 08:30 04/29/17 06:25 INR, PTT INR 2.07 (0.82-1.09) H 04/29/17 06:25 - ....Imaging EKG: Report Reviewed (Tele: [facility]) Problem List - Problems (1) A-fib Code(s): I48.91 - UNSPECIFIED ATRIAL FIBRILLATION Qualifiers: Atrial fibrillation type: paroxysmal Qualified Code(s): I48.0 - Paroxysmal atrial fibrillation; I48.0 - Paroxysmal atrial fibrillation; I48.0 - Paroxysmal atrial fibrillation; I48.0 - Paroxysmal atrial fibrillation (2) CAD (coronary artery disease) Code(s): I25.10 - ATHSCL HEART DISEASE OF [place] CORONARY ARTERY W/O ANG PCTRS Qualifiers: Coronary Disease-Associated Artery/Lesion type: [place] artery [place] vs. transplanted heart: [place] heart Associated angina: without angina Qualified Code(s): I25.10 - Atherosclerotic heart disease of [place] coronary artery without angina pectoris; I25.10 - Atherosclerotic heart disease of [place] coronary artery without angina pectoris; I25.10 - Atherosclerotic heart disease of [place] coronary artery without angina pectoris (3) CHF exacerbation Code(s): I50.9 - HEART FAILURE, UNSPECIFIED Qualifiers: Congestive heart failure type: systolic Qualified Code(s): I50.23 - Acute on chronic systolic (congestive) heart failure; I50.23 - Acute on chronic systolic (congestive) heart failure; I50.23 - Acute on chronic systolic ( congestive) heart failure; I50.23 - Acute on chronic systolic (congestive) heart failure (4) Elevated INR Code(s): R79.1 - ABNORMAL COAGULATION PROFILE (5) Exertional dyspnea Code(s): R06.09 - OTHER FORMS OF DYSPNEA (6) Hyperlipidemia Code(s): E78.5 - HYPERLIPIDEMIA, UNSPECIFIED Qualifiers: Hyperlipidemia type: pure hypercholesterolemia Qualified Code(s): E78.00 - Pure hypercholesterolemia, unspecified; E78.00 - Pure hypercholesterolemia, unspecified; E78.00 - Pure hypercholesterolemia, unspecified; E78.0 - Pure hypercholesterolemia (7) Chronic kidney disease (CKD) Code(s): N18.9 - CHRONIC KIDNEY DISEASE, UNSPECIFIED Qualifiers: Chronic kidney disease stage: stage 2 (mild) Qualified Code(s): N18.2 - Chronic kidney disease, stage 2 (mild); N18.2 - Chronic kidney disease, stage 2 (mild) (8) History of coronary artery stent placement Code(s): Z95.5 - PRESENCE OF CORONARY ANGIOPLASTY IMPLANT AND GRAFT (9) History of myocardial infarction Code(s): I25.2 - OLD MYOCARDIAL INFARCTION (10) 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 Acute on chronic class II-III NYHA classification systolic LV failure, resolving 2. CAD post [place]/PCI (stent), angina pectoris 3. Paroxysmal atrial fibrillation currently in sinus rhythm with sub- therapeutic INR, [id number] score of 7 4. Non-sustained VT (duration < 30 seconds) 5. MR moderate to severe in severity 6. HTN 7. Hypercholesterolemia 8. History of CVA with right-sided residual deficits 9. Acute kidney injury, resolved 10. Anemia PLAN: 1. Continue Lasix 40 qd and Aldactone 25 bid with caution and close monitoring of renal function,maintain k>4.5, Mg>2.5 2. Continue Coumadin as per INR maintain INR 2-3, d/c heparin gtt 3. Continue Lisinopril 20 qd close monitoring of renal function, and Entersto initiation as outpatient once euvolemic 4. Increase Toprol XL 100 bid 5. Continue Lipitor 40 qd 6. Continue Plavix 75 qd with caution considering the above noted anemia 7. Per EP consult, recommend LV fxn reassessment 90 days from date of coronary PCI/stent implant, in the interim to utilize Life-Vest, repeat echo 3 months post PCI, if EF remains reduced, recommend ICD implant
[2017-04-29] MEDS: HEPARIN INFUSION - 500 ML IVPB SCH (09:49)
[2017-04-29] MEDS: FUROSEMIDE 40 MG TABLET (FP) PO SCH (09:50)
[2017-04-29] MEDS: LISINOPRIL 20 MG TABLET (FP) PO SCH (09:50)
[2017-04-29] MEDS: SPIRONOLACTONE 25 MG TABLET (FP) PO SCH ×2 (09:50→21:37)
[2017-04-29] MEDS: POTASSIUM CHLORIDE TABS 10 MEQ TABLET.ER (FP) PO SCH (09:50)
[2017-04-29] MEDS: METOPROLOL SUCCINATE 100 MG TAB.SR.24H (FP) PO SCH ×2 (09:50→21:37)
[2017-04-29] MEDS: CLOPIDOGREL BISULFATE 75 MG TABLET (FP) PO SCH (09:50)
[2017-04-29] MEDS: RANITIDINE HCL 150 MG TABLET (FP) PO SCH (09:50)
[2017-04-29] MEDS ORDERED: MAGNESIUM OXIDE 400 MG TABLET (FP) PO ONE (10:00)
--- NOTE | 2017-04-29 10:17 | EKG ---
Test Reason : Blood Pressure : / mmHG Vent. Rate : 069 BPM Atrial Rate : 069 BPM P-R Int : 184 ms QRS Dur : 102 ms QT Int : 424 ms P-R-T Axes : 073 046 253 degrees QTc Int : 454 ms SINUS RHYTHM WITH PREMATURE ATRIAL COMPLEXES ANTERIOR INFARCT , AGE UNDETERMINED ABNORMAL ECG WHEN COMPARED WITH ECG OF 23-APR-2017 22:49, PREMATURE ATRIAL COMPLEXES ARE NOW PRESENT Confirmed by JEFF DHALIWAL MD ([id number]) on 04/29/2017 10:17:07 AM Referred By: [id number] Confirmed By:JEFF DHALIWAL MD
--- NOTE | 2017-04-29 11:23 | PN ---
Progress Note, Physician History of Present Illness: PULMONARY ALERT,NAD,-CP,-SOB - Current Medication List Current Medications: Active Medications Acetaminophen (Tylenol -) 650 mg PO Q6H PRN PRN Reason: FEVER OR PAIN Last Admin: 04/26/17 21:53 Dose: 650 mg Atorvastatin Calcium (Lipitor -) 40 mg PO DAILY@1800 [facility] Last Admin: 04/28/17 21:37 Dose: 40 mg Clopidogrel Bisulfate (Plavix -) 75 mg PO DAILY [facility] Last Admin: 04/29/17 09:50 Dose: 75 mg Furosemide (Lasix -) 40 mg PO DAILY [facility] Last Admin: 04/29/17 09:50 Dose: 40 mg Lisinopril (Prinivil) 20 mg PO DAILY [facility] Last Admin: 04/29/17 09:50 Dose: 20 mg Metoprolol Succinate (Toprol Xl -) 100 mg PO BID [facility] Potassium Chloride (K-Dur -) 10 meq PO DAILY [facility] Last Admin: 04/29/17 09:50 Dose: 10 meq Ranitidine HCl (Zantac -) 150 mg PO DAILY [facility] Last Admin: 04/29/17 09:50 Dose: 150 mg Simethicone (Mylicon -) 80 mg PO QID PRN PRN Reason: GAS Last Admin: 04/28/17 17:30 Dose: 80 mg Spironolactone (Aldactone -) 25 mg PO BID [facility] Last Admin: 04/29/17 09:50 Dose: 25 mg Warfarin Sodium (Coumadin -) 4 mg PO DAILY@1800 [facility] Last Admin: 04/28/17 17:30 Dose: 4 mg - Objective Vital Signs: Vital Signs Temperature 97.9 F 04/29/17 02:00 Pulse Rate 67 04/29/17 06:00 Respiratory Rate 20 04/29/17 06:00 Blood Pressure 115/67 04/29/17 06:00 O2 Sat by Pulse Oximetry (%) 98 04/28/17 20:28 Constitutional: Yes: Well Nourished, Calm Eyes: Yes: WNL HENT: Yes: WNL Neck: Yes: WNL Cardiovascular: Yes: Pulse Irregular, S1, S2 Respiratory: Yes: CTA Bilaterally Gastrointestinal: Yes: Normal Bowel Sounds, Soft Extremities: Yes: WNL Edema: No Labs: CBC, BMP 04/29/17 08:30 04/29/17 06:25 INR, PTT INR 2.07 (0.82-1.09) H 04/29/17 06:25 Problem List - Problems (1) A-fib Code(s): I48.91 - UNSPECIFIED ATRIAL FIBRILLATION Qualifiers: Atrial fibrillation type: paroxysmal Qualified Code(s): I48.0 - Paroxysmal atrial fibrillation; I48.0 - Paroxysmal atrial fibrillation; I48.0 - Paroxysmal atrial fibrillation; I48.0 - Paroxysmal atrial fibrillation (2) CAD (coronary artery disease) Code(s): I25.10 - ATHSCL HEART DISEASE OF [place] CORONARY ARTERY W/O ANG PCTRS Qualifiers: Coronary Disease-Associated Artery/Lesion type: [place] artery [place] vs. transplanted heart: [place] heart Associated angina: without angina Qualified Code(s): I25.10 - Atherosclerotic heart disease of [place] coronary artery without angina pectoris; I25.10 - Atherosclerotic heart disease of [place] coronary artery without angina pectoris; I25.10 - Atherosclerotic heart disease of [place] coronary artery without angina pectoris (3) CHF exacerbation Code(s): I50.9 - HEART FAILURE, UNSPECIFIED Qualifiers: Congestive heart failure type: systolic Qualified Code(s): I50.23 - Acute on chronic systolic (congestive) heart failure; I50.23 - Acute on chronic systolic (congestive) heart failure; I50.23 - Acute on chronic systolic ( congestive) heart failure; I50.23 - Acute on chronic systolic (congestive) heart failure (4) Chronic a-fib Code(s): I48.2 - CHRONIC ATRIAL FIBRILLATION (5) Chronic kidney disease (CKD) Code(s): N18.9 - CHRONIC KIDNEY DISEASE, UNSPECIFIED Qualifiers: Chronic kidney disease stage: stage 2 (mild) Qualified Code(s): N18.2 - Chronic kidney disease, stage 2 (mild); N18.2 - Chronic kidney disease, stage 2 (mild) (6) Exertional dyspnea Code(s): R06.09 - OTHER FORMS OF DYSPNEA (7) History of coronary artery stent placement Code(s): Z95.5 - PRESENCE OF CORONARY ANGIOPLASTY IMPLANT AND GRAFT (8) History of myocardial infarction Code(s): I25.2 - OLD MYOCARDIAL INFARCTION (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
[2017-04-29] MEDS ORDERED: MAG HYDROX/AL HYDROX/SIMETH 30 ML UNIT-DOSE CUP PO PRN (13:56)
--- NOTE | 2017-04-29 16:45 | PN ---
Physical Exam: SUBJECTIVE: Patient seen and examined at the bedside. She remains asymptomatic. OBJECTIVE: INR now therapeutic, discussed with cardiology: will stop Heparin infusion Mag 1.9 , K. 4.5 Noted to have 19 beats of non sustainted VT (19 beats) yesterday Per EP consult: recommend recommend LV fxn reassessment 90 days from date of coronary PCI/stent implant In the interim, a Live vest is to be utilized, repeat Echo in 3 months post PCI [employer] called by credit underwriter, spoke to Say [phone], paper work faxed , received. Will need input for insurance verification. Echo and EP report to be faxed to [facility] once insurance acceptance provided. Vital Signs Period Temp Pulse Resp BP Sys/Marcial Pulse Ox Last 24 Hr 97.6 F-98.4 F 66-74 19-20 107-127/55-74 97-98 GENERAL: The patient is awake, alert, and fully oriented, in no acute distress. HEAD: Normal with no signs of trauma. EYES: PERRL, extraocular movements intact, sclera anicteric, conjunctiva clear. No ptosis. ENT: Ears normal, nares patent, oropharynx clear without exudates, moist mucous membranes. NECK: Trachea midline, full range of motion, supple. LUNGS: diminished lung sounds, dyspnea at rest, will need supplemental oxygen for now HEART: Irregular, atrial fib. ABDOMEN: Soft, nontender, nondistended, normoactive bowel sounds, no guarding, no rebound, no hepatosplenomegaly, no masses. EXTREMITIES: +2 bilateral pitting edema NEUROLOGICAL: Normal speech, gait not observed. PSYCH: Normal mood, normal affect. SKIN: Warm, dry, normal turgor, no rashes or lesions noted Laboratory Results - last 24 hr 04/29/17 04/29/17 04/29/17 06:25 06:25 06:25 WBC 5.6 RBC 4.33 Hgb 9.0 L Hct 27.7 L MCV 64.1 L MCH 20.9 L MCHC 32.6 RDW 20.5 H Plt Count 319 MPV 10.1 Neutrophils % Lymphocytes % Monocytes % Eosinophils % Basophils % PT with INR 23.40 H INR 2.07 H PTT (Actin FS) 78.2 H Sodium Potassium Chloride Carbon Dioxide Anion Gap BUN Creatinine Creat Clearance w eGFR Random Glucose Calcium Magnesium Total Bilirubin AST ALT Alkaline Phosphatase Total Protein Albumin 04/29/17 04/29/17 06:25 08:30 WBC 5.8 RBC 4.36 Hgb 9.0 L Hct 28.1 L MCV 64.5 L MCH 20.7 L MCHC 32.1 RDW 20.1 H Plt Count 329 MPV 10.3 Neutrophils % 58.9 Lymphocytes % 33.5 Monocytes % 5.0 Eosinophils % 0.9 Basophils % 1.7 PT with INR INR PTT (Actin FS) Sodium 137 Potassium 4.5 Chloride 102 Carbon Dioxide 25 Anion Gap 10 BUN 19 H Creatinine 1.0 Creat Clearance w eGFR 53.62 Random Glucose 80 Calcium 8.8 Magnesium 1.9 Total Bilirubin 1.3 H AST 22 D ALT 60 Alkaline Phosphatase 107 Total Protein 6.1 L Albumin 3.0 L Active Medications Generic Name Dose Route Start Last Admin Trade Name Freq PRN Reason Stop Dose Admin Acetaminophen 650 mg 04/23/17 22:00 04/26/17 21:53 Tylenol - PO 650 mg Q6H PRN Administration FEVER OR PAIN Al Hydroxide/Mg Hydroxide 30 ml 04/29/17 13:56 Mylanta Oral Suspension - PO Q6H PRN DYSPEPSIA Atorvastatin Calcium 40 mg 04/24/17 18:00 04/28/17 21:37 Lipitor - PO 40 mg DAILY@1800 JULES Administration Clopidogrel Bisulfate 75 mg 04/22/17 10:00 04/29/17 09:50 Plavix - PO 75 mg DAILY JULES Administration Furosemide 40 mg 04/27/17 10:00 04/29/17 09:50 Lasix - PO 40 mg DAILY JULES Administration Lisinopril 20 mg 04/26/17 10:00 04/29/17 09:50 Prinivil PO 20 mg DAILY JULES Administration Metoprolol Succinate 100 mg 04/29/17 22:00 Toprol Xl - PO BID JULES Potassium Chloride 10 meq 04/26/17 10:00 04/29/17 09:50 K-Dur - PO 10 meq DAILY JULES Administration Ranitidine HCl 150 mg 04/22/17 10:00 04/29/17 09:50 Zantac - PO 150 mg DAILY JULES Administration Simethicone 80 mg 04/28/17 17:13 04/28/17 17:30 Mylicon - PO 80 mg QID PRN Administration GAS Spironolactone 25 mg 04/28/17 22:00 04/29/17 09:50 Aldactone - PO 25 mg BID JULES Administration Warfarin Sodium 4 mg 04/26/17 15:54 04/28/17 17:30 Coumadin - PO 4 mg DAILY@1800 JULES Administration ASSESSMENT/PLAN: Patient is a 76 year old female with a significant past medical history of hypertension, hyperlipidemia, CHF, CVA (R sided deficit, 2017), [place] s/p Stent x1 (2 months ago), Afib (on Coumadin), GERD, chronic lower ext edema. She presents to ED for dyspnea on exertion, increased bilateral lower extremity edema x 4 days. It was reported that patient has had increased weight gain as well. Patient denies fever, chills, chest pain or palpitations. [place] [address], Chest xray showed cardiomegaly. Hyperkalemia on admission at 5.8, now resolved. Imaging: Echocardiogram: Transthoracic echocardiography revealed severely reduced LV systolic function with global hypokinesia, moderate RV dysfunction, moderate to severe MR, moderate TR, mild AR and moderate [place] Cardiology: CHF Exacerbation, acute on chronic A/P: [place] [address] on admission: given Lasix in ED, now on Lasix 40mg PO BID Life vest recommended by cardiology, [employer] called, papers received, awaiting insurance clearance Magnesium is 1.9, given Mag 400mg supplement today (goal is to keep mag >2.5, K. 4.5) Continue Aldactone 25mg BID, Lisinopril 20mg qd, Toprol XL 100mg BID Monitor renal function Daily weights, strict intake and output Troponins negative x 3 Echo reviewed Tele Monitoring Monitor [facility] Cardiology following Hyperkalemia, resolved S/P: Now with HypoK, supplemented will restart home dose of K. Afib/Supratherapuetic INR on admission, was on heparin gtt, now stopped INR. 2.07, continue Coumadin @ 4mg, INR in a.m. CAD, chronic A/p: Cardiac stent x 1, on Plavix Hypertension, controlled A/P: monitor BP Pulmonary: Shortness of breath/dyspnea on exertion A/P: Tolerating 2 liters of nasal cannula, respiratory pre and post shows patient needs home oxygen Lungs diminished, Duonebs scheduled ordered Will order pre and post prior to discharge As per pulm, patient had positive sleep screen, will need formal screen to rule out sleep apnea GI: Elevated AST/AST Trended down, monitor Neuro CVA (R sided deficit, 2017) A/P: On Plavix, on Lipitor Lipid panel reviewed PT to follow F.E.N. Fluids: tolerating PO, restrict PO fluids to 1 liter Electrolytes: monitor Nutrition: low sodium Prophylaxis: DVT: On Coumadin GI: Protonix Disposition. Full code.
[2017-04-29] MEDS: ATORVASTATIN CA 40 MG TABLET (FP) PO SCH (17:26)
[2017-04-29] MEDS: WARFARIN NA 2 MG TABLET (UD) PO SCH (17:26)
[2017-04-29] MEDS: ACETAMINOPHEN 325 MG TABLET (FP) PO PRN (20:39)
[2017-04-30 07:25] LABS: BASOPHIL 0.6 % (0-2.0); EOSINOPHIL 1.5 % (0-4.5); MCH 20.8 pg (25.7-33.7); MCHC 32.5 g/dl (32.0-36.0); MEAN PLT VOLUME 9.5 fl (7.5-11.1); NEUTROPHILS 57.6 % (42.8-82.8); PLATELET COUNT 271 K/MM3 (134-434); RDW 20.6 % (11.6-15.6); WHITE BLOOD COUNT 4.6 K/mm3 (4.0-10.0)
[2017-04-30 07:42] LABS: INR 2.19 (0.82-1.09); PROTHROMBIN TIME (PATIENT) 24.8 SEC (9.98-11.88)
[2017-04-30 08:00] LABS: ALBUMIN 2.8 g/dl (3.4-5.0); ANION GAP 9 (8-16); CALCIUM 8.6 mg/dL (8.5-10.1); CO2 26 mmol/L (21-32); GLUCOSE,RANDOM 77 mg/dL (74-106)
[2017-04-30 08:03] LABS: ALK PHOS 101 U/L (45-117); BILIRUBIN,TOTAL 1.1 mg/dL (0.2-1.0); SGOT/AST 22 U/L (15-37); SGPT/ALT 48 U/L (12-78); TOT PROT 5.8 g/dl (6.4-8.2)
--- NOTE | 2017-04-30 09:28 | PN ---
Progress Note, Physician Chief Complaint: Events noted Not in distress History of Present Illness: Patient was seen and examined. Awake. Chart was reviewed Denies chest pain, SOB or palpitations - Current Medication List Current Medications: Active Medications Acetaminophen (Tylenol -) 650 mg PO Q6H PRN PRN Reason: FEVER OR PAIN Last Admin: 04/29/17 20:39 Dose: 650 mg Al Hydroxide/Mg Hydroxide (Mylanta Oral Suspension -) 30 ml PO Q6H PRN PRN Reason: DYSPEPSIA Atorvastatin Calcium (Lipitor -) 40 mg PO DAILY@1800 [facility] Last Admin: 04/29/17 17:26 Dose: 40 mg Clopidogrel Bisulfate (Plavix -) 75 mg PO DAILY [facility] Last Admin: 04/29/17 09:50 Dose: 75 mg Furosemide (Lasix -) 40 mg PO DAILY [facility] Last Admin: 04/29/17 09:50 Dose: 40 mg Lisinopril (Prinivil) 20 mg PO DAILY [facility] Last Admin: 04/29/17 09:50 Dose: 20 mg Metoprolol Succinate (Toprol Xl -) 100 mg PO BID [facility] Last Admin: 04/29/17 21:37 Dose: 100 mg Potassium Chloride (K-Dur -) 10 meq PO DAILY [facility] Last Admin: 04/29/17 09:50 Dose: 10 meq Ranitidine HCl (Zantac -) 150 mg PO DAILY [facility] Last Admin: 04/29/17 09:50 Dose: 150 mg Simethicone (Mylicon -) 80 mg PO QID PRN PRN Reason: GAS Last Admin: 04/28/17 17:30 Dose: 80 mg Spironolactone (Aldactone -) 25 mg PO BID [facility] Last Admin: 04/29/17 21:37 Dose: 25 mg Warfarin Sodium (Coumadin -) 4 mg PO DAILY@1800 [facility] Last Admin: 04/29/17 17:26 Dose: 4 mg - Objective Vital Signs: Vital Signs Temperature 97.1 F L 04/30/17 06:00 Pulse Rate 60 04/30/17 06:00 Respiratory Rate 17 04/30/17 06:00 Blood Pressure 129/74 04/30/17 06:00 O2 Sat by Pulse Oximetry (%) 100 04/29/17 21:00 Neck: Yes: Supple Cardiovascular: Yes: Regular Rate and Rhythm, S1, S2 Respiratory: Yes: CTA Bilaterally Gastrointestinal: Yes: Normal Bowel Sounds, Soft. No: Tenderness Edema: No Additional Findings/Remarks: - Review of Systems Constitutional: denies: Chills, Fever Cardiovascular: denies Chest Pain, denies: Palpitations, (-) Shortness of Breath Respiratory: denies: Cough, Hemoptysis, Orthopnea, PND,(-) SOB, SOB on Exertion Gastrointestinal: denies: Abdominal Pain, Constipation, Diarrhea, Melena, Nausea , Rectal Bleeding, Vomiting Genitourinary: denies: Flank Pain, Hematuria Musculoskeletal: denies: Joint Pain Neurological: denies: Dizziness, Headache, Seizure, Syncope Labs: CBC, BMP 04/30/17 05:35 04/30/17 05:35 INR, PTT INR 2.19 (0.82-1.09) H 04/30/17 05:35 Problem List - Problems (1) A-fib Code(s): I48.91 - UNSPECIFIED ATRIAL FIBRILLATION Qualifiers: Qualified Code(s): I48.0 - Paroxysmal atrial fibrillation; I48.0 - Paroxysmal atrial fibrillation; I48.0 - Paroxysmal atrial fibrillation; I48.0 - Paroxysmal atrial fibrillation (2) CAD (coronary artery disease) Code(s): I25.10 - ATHSCL HEART DISEASE OF [place] CORONARY ARTERY W/O ANG PCTRS Qualifiers: Qualified Code(s): I25.10 - Atherosclerotic heart disease of [place] coronary artery without angina pectoris; I25.10 - Atherosclerotic heart disease of [place] coronary artery without angina pectoris; I25.10 - Atherosclerotic heart disease of [place] coronary artery without angina pectoris (3) Chronic kidney disease (CKD) Code(s): N18.9 - CHRONIC KIDNEY DISEASE, UNSPECIFIED Qualifiers: Qualified Code(s): N18.2 - Chronic kidney disease, stage 2 (mild); N18.2 - Chronic kidney disease, stage 2 (mild) (4) History of coronary artery stent placement Code(s): Z95.5 - PRESENCE OF CORONARY ANGIOPLASTY IMPLANT AND GRAFT (5) Hyperkalemia Code(s): E87.5 - HYPERKALEMIA (6) Hyperlipidemia Code(s): E78.5 - HYPERLIPIDEMIA, UNSPECIFIED Qualifiers: Qualified Code(s): E78.00 - Pure hypercholesterolemia, unspecified; E78.00 - Pure hypercholesterolemia, unspecified; E78.00 - Pure hypercholesterolemia, unspecified; E78.0 - Pure hypercholesterolemia Assessment/Plan 1. Acute on chronic LV failure - underlying severe LV systolic dysfunction with low LVEF 2. Paroxysmal atrial fibrillation 3. CAD h/o [place] s/p PCI (stent), angina pectoris 4. History of CVA with right-sided residual deficits 5. Chronic kidney disease with hyperkalemia 6. Presence of ILR PLAN: 1. PO diuresis with monitoring renal function and electrolytes. Continue Aldactone 2. Continue Coumadin per INR 3. Continue Lisinopril. 4. Continue Lipitor, Plavix and Toprol XL 5. Assessment of LVEF in 3 months and if LVEF < 35%, consider ICD upgrade for primary prophylaxis, but for now, patient is to be discharged on LifeVest. Further plans are to follow Mikel Tam MD
[2017-04-30] MEDS: FUROSEMIDE 40 MG TABLET (FP) PO SCH (09:52)
[2017-04-30] MEDS: SPIRONOLACTONE 25 MG TABLET (FP) PO SCH (09:52)
[2017-04-30] MEDS: LISINOPRIL 20 MG TABLET (FP) PO SCH (09:52)
[2017-04-30] MEDS: METOPROLOL SUCCINATE 100 MG TAB.SR.24H (FP) PO SCH (09:52)
[2017-04-30] MEDS: CLOPIDOGREL BISULFATE 75 MG TABLET (FP) PO SCH (09:52)
[2017-04-30] MEDS: RANITIDINE HCL 150 MG TABLET (FP) PO SCH (09:52)
[2017-04-30] MEDS: POTASSIUM CHLORIDE TABS 10 MEQ TABLET.ER (FP) PO SCH (09:52)
--- NOTE | 2017-04-30 11:55 | PN ---
Progress Note, Physician History of Present Illness: PULMONARY ALERT,NAD,-SOB,-CP - Current Medication List Current Medications: Active Medications Acetaminophen (Tylenol -) 650 mg PO Q6H PRN PRN Reason: FEVER OR PAIN Last Admin: 04/29/17 20:39 Dose: 650 mg Al Hydroxide/Mg Hydroxide (Mylanta Oral Suspension -) 30 ml PO Q6H PRN PRN Reason: DYSPEPSIA Atorvastatin Calcium (Lipitor -) 40 mg PO DAILY@1800 [facility] Last Admin: 04/29/17 17:26 Dose: 40 mg Clopidogrel Bisulfate (Plavix -) 75 mg PO DAILY [facility] Last Admin: 04/30/17 09:52 Dose: 75 mg Furosemide (Lasix -) 40 mg PO DAILY [facility] Last Admin: 04/30/17 09:52 Dose: 40 mg Lisinopril (Prinivil) 20 mg PO DAILY [facility] Last Admin: 04/30/17 09:52 Dose: 20 mg Metoprolol Succinate (Toprol Xl -) 100 mg PO BID [facility] Last Admin: 04/30/17 09:52 Dose: 100 mg Potassium Chloride (K-Dur -) 10 meq PO DAILY [facility] Last Admin: 04/30/17 09:52 Dose: 10 meq Ranitidine HCl (Zantac -) 150 mg PO DAILY [facility] Last Admin: 04/30/17 09:52 Dose: 150 mg Simethicone (Mylicon -) 80 mg PO QID PRN PRN Reason: GAS Last Admin: 04/28/17 17:30 Dose: 80 mg Spironolactone (Aldactone -) 25 mg PO BID [facility] Last Admin: 04/30/17 09:52 Dose: 25 mg Warfarin Sodium (Coumadin -) 4 mg PO DAILY@1800 [facility] Last Admin: 04/29/17 17:26 Dose: 4 mg - Objective Vital Signs: Vital Signs Temperature 98.4 F 04/30/17 10:00 Pulse Rate 60 04/30/17 10:00 Respiratory Rate 18 04/30/17 10:00 Blood Pressure 124/60 04/30/17 10:00 O2 Sat by Pulse Oximetry (%) 100 04/30/17 09:00 Constitutional: Yes: Well Nourished, Calm Eyes: Yes: WNL HENT: Yes: WNL Neck: Yes: WNL Cardiovascular: Yes: Pulse Irregular, S1, S2 Respiratory: Yes: CTA Bilaterally Gastrointestinal: Yes: Normal Bowel Sounds, Soft Extremities: Yes: WNL Edema: Yes Labs: CBC, BMP 04/30/17 05:35 04/30/17 05:35 INR, PTT INR 2.19 (0.82-1.09) H 04/30/17 05:35 Problem List - Problems (1) A-fib Code(s): I48.91 - UNSPECIFIED ATRIAL FIBRILLATION Qualifiers: Atrial fibrillation type: paroxysmal Qualified Code(s): I48.0 - Paroxysmal atrial fibrillation; I48.0 - Paroxysmal atrial fibrillation; I48.0 - Paroxysmal atrial fibrillation; I48.0 - Paroxysmal atrial fibrillation (2) CAD (coronary artery disease) Code(s): I25.10 - ATHSCL HEART DISEASE OF [place] CORONARY ARTERY W/O ANG PCTRS Qualifiers: Coronary Disease-Associated Artery/Lesion type: [place] artery [place] vs. transplanted heart: [place] heart Associated angina: without angina Qualified Code(s): I25.10 - Atherosclerotic heart disease of [place] coronary artery without angina pectoris; I25.10 - Atherosclerotic heart disease of [place] coronary artery without angina pectoris; I25.10 - Atherosclerotic heart disease of [place] coronary artery without angina pectoris (3) CHF exacerbation Code(s): I50.9 - HEART FAILURE, UNSPECIFIED Qualifiers: Congestive heart failure type: systolic Qualified Code(s): I50.23 - Acute on chronic systolic (congestive) heart failure; I50.23 - Acute on chronic systolic (congestive) heart failure; I50.23 - Acute on chronic systolic ( congestive) heart failure; I50.23 - Acute on chronic systolic (congestive) heart failure (4) Chronic a-fib Code(s): I48.2 - CHRONIC ATRIAL FIBRILLATION (5) Chronic kidney disease (CKD) Code(s): N18.9 - CHRONIC KIDNEY DISEASE, UNSPECIFIED Qualifiers: Chronic kidney disease stage: stage 2 (mild) Qualified Code(s): N18.2 - Chronic kidney disease, stage 2 (mild); N18.2 - Chronic kidney disease, stage 2 (mild) (6) Exertional dyspnea Code(s): R06.09 - OTHER FORMS OF DYSPNEA (7) History of coronary artery stent placement Code(s): Z95.5 - PRESENCE OF CORONARY ANGIOPLASTY IMPLANT AND GRAFT (8) History of myocardial infarction Code(s): I25.2 - OLD MYOCARDIAL INFARCTION (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
--- NOTE | 2017-04-30 12:16 | PN ---
Physical Exam: SUBJECTIVE: Patient seen and examined OBJECTIVE: Vital Signs Period Temp Pulse Resp BP Sys/Marcial Pulse Ox Last 24 Hr 97.1 F-98.4 F 60-71 17-19 100-134/55-74 100-100 GENERAL: The patient is awake, alert, and fully oriented, in no acute distress. HEAD: Normal with no signs of trauma. EYES: PERRL, extraocular movements intact, sclera anicteric, conjunctiva clear. No ptosis. ENT: Ears normal, nares patent, oropharynx clear without exudates, moist mucous membranes. NECK: Trachea midline, full range of motion, supple. LUNGS: Breath sounds equal, clear to auscultation bilaterally, no wheezes, no crackles, no accessory muscle use. HEART: Regular rate and rhythm, S1, S2 without murmur, rub or gallop. ABDOMEN: Soft, nontender, nondistended, normoactive bowel sounds, no guarding, no rebound, no hepatosplenomegaly, no masses. EXTREMITIES: 2+ pulses, warm, well-perfused, no edema. NEUROLOGICAL: Cranial nerves II through XII grossly intact. Normal speech, gait not observed. PSYCH: Normal mood, normal affect. SKIN: Warm, dry, normal turgor, no rashes or lesions noted Laboratory Results - last 24 hr 04/30/17 04/30/17 04/30/17 05:35 05:35 05:35 WBC 4.6 RBC 4.26 Hgb 8.9 L Hct 27.3 L MCV 64.0 L MCH 20.8 L MCHC 32.5 RDW 20.6 H Plt Count 271 MPV 9.5 Neutrophils % 57.6 Lymphocytes % 32.4 Monocytes % 7.9 Eosinophils % 1.5 Basophils % 0.6 PT with INR 24.80 H INR 2.19 H PTT (Actin FS) 108.9 H D Sodium Potassium Chloride Carbon Dioxide Anion Gap BUN Creatinine Creat Clearance w eGFR Random Glucose Calcium Total Bilirubin AST ALT Alkaline Phosphatase Total Protein Albumin 04/30/17 05:35 WBC RBC Hgb Hct MCV MCH MCHC RDW Plt Count MPV Neutrophils % Lymphocytes % Monocytes % Eosinophils % Basophils % PT with INR INR PTT (Actin FS) Sodium 139 Potassium 4.3 Chloride 104 Carbon Dioxide 26 Anion Gap 9 BUN 22 H Creatinine 1.0 Creat Clearance w eGFR 53.62 Random Glucose 77 Calcium 8.6 Total Bilirubin 1.1 H AST 22 ALT 48 Alkaline Phosphatase 101 Total Protein 5.8 L Albumin 2.8 L Active Medications Generic Name Dose Route Start Last Admin Trade Name Pennie PRN Reason Stop Dose Admin Acetaminophen 650 mg 04/23/17 22:00 04/29/17 20:39 Tylenol - PO 650 mg Q6H PRN Administration FEVER OR PAIN Al Hydroxide/Mg Hydroxide 30 ml 04/29/17 13:56 Mylanta Oral Suspension - PO Q6H PRN DYSPEPSIA Atorvastatin Calcium 40 mg 04/24/17 18:00 04/29/17 17:26 Lipitor - PO 40 mg DAILY@1800 JULES Administration Clopidogrel Bisulfate 75 mg 04/22/17 10:00 04/30/17 09:52 Plavix - PO 75 mg DAILY JULES Administration Furosemide 40 mg 04/27/17 10:00 04/30/17 09:52 Lasix - PO 40 mg DAILY JULES Administration Lisinopril 20 mg 04/26/17 10:00 04/30/17 09:52 Prinivil PO 20 mg DAILY JULES Administration Metoprolol Succinate 100 mg 04/29/17 22:00 04/30/17 09:52 Toprol Xl - PO 100 mg BID JULES Administration Potassium Chloride 10 meq 04/26/17 10:00 04/30/17 09:52 K-Dur - PO 10 meq DAILY JULES Administration Ranitidine HCl 150 mg 04/22/17 10:00 04/30/17 09:52 Zantac - PO 150 mg DAILY JULES Administration Simethicone 80 mg 04/28/17 17:13 04/28/17 17:30 Mylicon - PO 80 mg QID PRN Administration GAS Spironolactone 25 mg 04/28/17 22:00 04/30/17 09:52 Aldactone - PO 25 mg BID JULES Administration Warfarin Sodium 4 mg 04/26/17 15:54 04/29/17 17:26 Coumadin - PO 4 mg DAILY@1800 JULES Administration ASSESSMENT/PLAN:
--- NOTE | 2017-04-30 15:20 | DS ---
Physical Exam: SUBJECTIVE: Patient seen and examined at the bedside. She was seen walking with physical therapy/respiratory therapy in the hallways. She denies any dyspnea with ambulation. Patient does not quality for home oxygen. OBJECTIVE: INR now therapeutic @ 2.19, Coumadin to continue at 4mg with an INR followup with PCP Patient to be discharged today with a LIFEVEST, but only after patient's family comes in to be taught by the [employer] provider Patient to come in today @ 8pm, Patient will need a LV function reassessment 90 days from date of PCI/stent implant, in the interim must use a Life Vest. Repeat Echo in 3 months post PCI/ stent. Patient evaluated by respiratory therapy, does not quality for home oxygen. Vital Signs Period Temp Pulse Resp BP Sys/Marcial Pulse Ox Last 24 Hr 97.1 F-98.4 F 60-71 17-19 100-134/55-74 99-100 PHYSICAL EXAM GENERAL: The patient is awake, alert, and fully oriented, in no acute distress. HEAD: Normal with no signs of trauma. EYES: PERRL, extraocular movements intact, sclera anicteric, conjunctiva clear. ENT: Ears normal, nares patent, oropharynx clear without exudates, moist mucous membranes. NECK: Trachea midline, full range of motion, supple. LUNGS: Breath sounds equal, clear to auscultation bilaterally, no wheezes, no crackles, no accessory muscle use. HEART: Prox afib, on Coumadin ABDOMEN: Soft, nontender, nondistended, normoactive bowel sounds, no guarding, no rebound, no hepatosplenomegaly, no masses. EXTREMITIES: 2+ pulses, warm, well-perfused, no edema. NEUROLOGICAL: ambulated with RW, tolerating room air with ambulation, denies shortness of breath PSYCH: Normal mood, normal affect. SKIN: Warm, dry, normal turgor, no rashes or lesions noted. LABS Laboratory Results - last 24 hr 04/30/17 04/30/17 04/30/17 05:35 05:35 05:35 WBC 4.6 RBC 4.26 Hgb 8.9 L Hct 27.3 L MCV 64.0 L MCH 20.8 L MCHC 32.5 RDW 20.6 H Plt Count 271 MPV 9.5 Neutrophils % 57.6 Lymphocytes % 32.4 Monocytes % 7.9 Eosinophils % 1.5 Basophils % 0.6 PT with INR 24.80 H INR 2.19 H PTT (Actin FS) 108.9 H D Sodium Potassium Chloride Carbon Dioxide Anion Gap BUN Creatinine Creat Clearance w eGFR Random Glucose Calcium Magnesium Total Bilirubin AST ALT Alkaline Phosphatase Total Protein Albumin 04/30/17 04/30/17 05:35 13:35 WBC RBC Hgb Hct MCV MCH MCHC RDW Plt Count MPV Neutrophils % Lymphocytes % Monocytes % Eosinophils % Basophils % PT with INR INR PTT (Actin FS) Sodium 139 Potassium 4.3 Chloride 104 Carbon Dioxide 26 Anion Gap 9 BUN 22 H Creatinine 1.0 Creat Clearance w eGFR 53.62 Random Glucose 77 Calcium 8.6 Magnesium 2.0 Total Bilirubin 1.1 H AST 22 ALT 48 Alkaline Phosphatase 101 Total Protein 5.8 L Albumin 2.8 L HOSPITAL COURSE: Date of Admission:04/23/17 Date of Discharge: 04/30/17 ASSESSMENT/PLAN: Patient is a 76 year old female with a significant past medical history of hypertension, hyperlipidemia, CHF, CVA (R sided deficit, 2017), [place] s/p Stent x1 (2 months ago), Afib (on Coumadin), GERD, chronic lower ext edema. She presents to ED for dyspnea on exertion, increased bilateral lower extremity edema x 4 days. It was reported that patient has had increased weight gain as well. Patient denies fever, chills, chest pain or palpitations. [place] [address], Chest xray showed cardiomegaly. Hyperkalemia on admission at 5.8, now resolved. Imaging: Echocardiogram: Transthoracic echocardiography revealed severely reduced LV systolic function with global hypokinesia, moderate RV dysfunction, moderate to severe MR, moderate TR, mild AR and moderate [place] Cardiology: CHF Exacerbation, acute on chronic/improved A/P: BNP elevated @ [address] on admission: given Lasix in ED, now on Lasix 40mg PO daily Life vest recommended by cardiology, [facility] has delivered same, awaiting family to be taught prior to discharge-scheduled for 8pm today, discharge order to be entered once family is taught. Magnesium is 2.0, K. 4.3 (goal is to keep mag >2 to 2.5, K. 4 to 4.5) Continue Aldactone 25mg BID, Lisinopril 20mg qd, Toprol XL 100mg BID Monitor renal function as an outpatient Troponins negative x 3 Echo reviewed Tele Monitoring Monitor BMP Cardiology cleared patient for discharge with LifeVest and close cardiology follow up. Hyperkalemia, resolved S/P: Potassium stable at 4.3, continue Potassium supplements with close outpatient followup Afib/Supratherapuetic INR on admission, was on heparin gtt, now stopped INR. 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 Discharge home today after LIFEVEST outside dealer sales representative provides teaching to family on the LifeVest patient is to be discharged with. Full code. 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 A life vest is a wearable defibrillation to treat for cardiac emergencies. Before you are discharged, it is important that you will be shown how to use this LifeVest with your family present (Family to come in today at 8pm). Please follow up with your private Geospatial Program Management Officer: Dr. Rahul Herr [phone] within 1 week of discharge. You will also need a sleep study with Dr. Syed, please call him to arrange this. CONTINUE THESE MEDICATIONS: Continue Coumadin as ordered (Coumadin @4mg) daily Continue Lisinopril 20mg PO daily Continue Lipitor, Plavix and Toprol XL (dose of Toprol has been increased to 100mg) Your Coumadin has been increased and you will need to continue to monitor your INR. Assessment of LVEF in 3 months and if LVEF < 35%, consider ICD upgrade for primary prophylaxis, but for now, patient is to be discharged on LifeVest. Please call me with any questions that you may have [facility] [phone] Referrals: Roni Syed MD [Staff Physician] - 1 Week Greg Zamora MD [Staff Physician] - 2 Weeks Petra Esparza [Primary Care Provider] - 1 Week Disposition: HOME - Home Medications Comprehensive Discharge Medication List: Ambulatory Orders Clopidogrel Bisulfate [Clopidogrel] 75 mg PO 04/21/17 Famotidine [Pepcid -] 40 mg PO DAILY 04/21/17 Lisinopril [Prinivil] 20 mg PO DAILY 04/21/17 Potassium Chloride 10 meq PO 04/21/17 Warfarin Sodium [Coumadin] 2.5 mg PO 04/21/17 Acetaminophen [Tylenol .Regular Strength -] 650 mg PO Q6H PRN #0 tablet Atorvastatin Ca [Lipitor] 40 mg PO DAILY@1800 #30 tablet 04/30/17 Furosemide [Lasix -] 40 mg PO DAILY #60 tablet 04/30/17 Lisinopril [Prinivil] 20 mg PO DAILY #0 tablet 04/30/17 Metoprolol Succinate [Toprol XL -] 100 mg PO BID #30 tab 04/30/17 Metoprolol Succinate [Toprol XL -] 100 mg PO DAILY #30 tab 04/30/17 Ranitidine [Zantac -] 150 mg PO DAILY tablet 04/30/17 Spironolactone [Aldactone -] 25 mg PO BID #60 tablet 04/30/17 This patient is new to me today: No Emergency Visit: Yes ED Registration Date: 04/23/17 Care time: The patient presented to the Emergency Department on the above date and was hospitalized for further evaluation of their emergent condition. Critical Care patient: No - Discharge Referral Referred to [facility] No
[2017-04-30] MEDS: ATORVASTATIN CA 40 MG TABLET (FP) PO SCH (17:16)
[2017-04-30] MEDS: WARFARIN NA 2 MG TABLET (UD) PO SCH (17:16)
[2017-04-30 23:55] VITALS: BP 121/58; PULSE 70; TEMP 98
== END 2017-04-30 21:45 | disposition home or self-care (01) | DRG 291 ==
LOC: JER 17:31 → JERBED 21:22 → J4S 04-22 11:56 → J4W 04-22 14:02 → OBSVTOIN 04-23 13:45
PROVIDERS: ADMIT Internal Medicine; ATTEND Nurse Practitioner Family
DX: I13.0 Hypertensive heart and chronic kidney disease with heart failure and stage 1 through stage 4 chronic kidney disease, or unspecified chronic kidney disease (principal); I50.23 Acute on chronic systolic (congestive) heart failure; I47.1 Supraventricular tachycardia; N17.9 Acute kidney failure, unspecified; I31.3 Pericardial effusion (noninflammatory); I69.351 Hemiplegia and hemiparesis following cerebral infarction affecting right dominant side; Z79.01 Long term (current) use of anticoagulants; I11.0 Hypertensive heart disease with heart failure; I25.10 Atherosclerotic heart disease of native coronary artery without angina pectoris; K21.9 Gastro-esophageal reflux disease without esophagitis; E78.5 Hyperlipidemia, unspecified; I48.2 Chronic atrial fibrillation; E87.5 Hyperkalemia; I25.2 Old myocardial infarction; I48.0 Paroxysmal atrial fibrillation; N18.2 Chronic kidney disease, stage 2 (mild); Z95.5 Presence of coronary angioplasty implant and graft; I42.9 Cardiomyopathy, unspecified; I34.0 Nonrheumatic mitral (valve) insufficiency; I36.1 Nonrheumatic tricuspid (valve) insufficiency; I35.1 Nonrheumatic aortic (valve) insufficiency; G47.33 Obstructive sleep apnea (adult) (pediatric); D64.9 Anemia, unspecified
CPT/HCPCS: 36415; 71010-TC; 80048; 80053; 80061; 82550; 83721; 83735; 83880; 84100; 84484; 85025; 85027; 85610; 85730; 93005; 93010; 93306-TC; 94640; 94761; 97116-GP; 97161-GP; 99284-25; G0378; J1644